=== PATIENT | male | born 1940 | race Caucasian/White ===

== ENCOUNTER → 2018-07-29 | Outpatient (CLI) | payer OTHER ==
[~2018-07-29] MED LIST: ACCUPRIL40 MG PO; ALEVE220 MG PO; AMLODIPINE BESY10 MG PO; ARICEPT 5 MG TAB5 MG PO; ASA81BEC PO; ASPIRIN EC81 M1 PO; ASPIRIN325 PO; B12INJ PO; CELEXA 20 MG TA20 M1 PO; COLACE100 MG PO; CRESTOR20 MG PO; FLEXERIL PO; GLUCOPHAGE1000 MG PO; GLUCOTROL5 MG PO; K-DUR 20 MEQ T20 MEQ PO; L-ARGININE1000 MG PO; LAMICTAL 25 MG25 M1 PO; LASIX 40 MG TAB40 MG PO; LOPRESSOR100 MG PO; MIRALAX17 GM PO; NAPROSYN500 MG PO; NEURONTIN 300300 M1 PO; NEXIUM40 MG PO; NITROGLYCERIN0.4 MG SL; PERCOCET 5-3251 EACH PO; PHENERGAN 25 MG25 M1 PO; PLAVIX 75 MG TA75 M1 PO; PREVACID15 MG PO; RANEXA1000 MG PO; RANITIDINE HCL300 M1 PO; TRAMADOL 50 MG50 MG PO; XANAX 0.5 MG0.5 M1 PO
--- NOTE | ~2018-07-29 | P ---
[facility] [place] [address] PROCEDURE REPORT Name: RIVERA RAPP Room #: REG [facility].#: [id number] Admission: 07/29/18 Attend Phys: Wilner Hill MD Discharge: Date of : 39 Report #: [id number] THIS REPORT FOR: //name// CC: Philip Hill BRIEF HISTORY: The patient is a 77-year-old male with multiple problems including upper abdominal pain. He had a cholecystectomy last fall. He also is noted to be anemic. In addition, he has developed chronic diarrhea. He also has intermittent solid food dysphagia. 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 PREOPERATIVE DIAGNOSES: Abdominal pain, diarrhea, dysphagia and history of focal intestinal metaplasia. POSTOPERATIVE DIAGNOSES: 1. Moderately severe diffuse gastritis. 2. Small 1-2 cm sliding type hiatus hernia. 3. Focal area of trauma, GE junction secondary to vomiting last evening with prep. 4. Solid food dysphagia. 5. Small duodenal diverticulum. MEDICATIONS: Deep sedation with propofol per Anesthesia. SPECIMENS: 1. Small bowel biopsy, rule out celiac disease. 2. Biopsies of gastritis. ESTIMATED BLOOD LOSS: 3 mL. PROCEDURE: EGD with biopsy and Askew dilation. FINDINGS: Prior to propofol sedation, procedure of upper endoscopy and dilation was reviewed with the patient and his . They indicate they understand and desire that we proceed. DESCRIPTION OF PROCEDURE: With the patient in left lateral decubitus position, the Olympus video endoscope was inserted in the cervical esophagus under direct vision without difficulty. Examination of this organ through its entire length revealed normal esophageal mucosa through the entire esophagus down to the squamocolumnar junction. No obvious esophagitis or Ugarte mucosa. Examination of squamocolumnar junction revealed a focal area of minor trauma, likely secondary to vomiting last evening. A significant tear was not seen. There was no bleeding or clot. A small 1-2cm intermittently seen sliding type hiatus hernia was noted. Mucosa and hernia unremarkable. Scope was advanced in the [facility] [address] [place] [address] PROCEDURE REPORT Name: RIVERA RAPP Room #: REG [facility].#: [id number] Admission: 07/29/18 Attend Phys: Wilner Hill MD Discharge: Date of : 39 Report #: [id number] stomach, once again was examined on end view as well as retroflexed views. There was a small amount of bile in his stomach, which is not surprising in view of his previous cholecystectomy. There was moderately diffuse gastritis with diffuse erythema in the stomach and antral striations but no ulcers or erosions. There was no evidence of bleeding lesions. Vascular ectasias were not seen. Biopsies were obtained in view of his history of intestinal metaplasia. No mass, lesions or nodularity was seen. The pylorus was normal. Duodenal bulb and postbulbar sweep down the third portion was unremarkable except for small duodenal diverticulum. At that point, scope was slowly withdrawn and careful circumferential views were obtained. Biopsies were obtained of the gastritis. Following procedure, he was dilated with passage of 50-Kittitian Askew dilator with no resistance. CONDITION OF THE PATIENT UPON DISCHARGE: Following procedure, the patient was drowsy and prepared for colonoscopy. INSTRUCTIONS TO THE PATIENT AND FAMILY AT THE TIME OF DISCHARGE: He has had abdominal pain. We will have him take omeprazole 40 mg daily. We will also follow up on biopsies and make further recommendations as needed. He is to return for dilation of esophagus on an as needed basis. We will proceed with colonoscopy at this time. By: 1406 [id number] Wilner Hill MD /nt
--- NOTE | ~2018-07-29 | P ---
[facility] [place] [address] PROCEDURE REPORT Name: RIVERA RAPP Room #: REG [facility].#: [id number] Admission: 07/29/18 Attend Phys: Wilner Hill MD Discharge: Date of : 39 Report #: [id number] THIS REPORT FOR: //name// CC: Philip Hill OUTPATIENT COLONOSCOPY BRIEF HISTORY: The patient is a 77-year-old male who recently has had problems with anemia. He also has developed chronic diarrhea. He has a history of colon polyps. PREOPERATIVE DIAGNOSES: Anemia, diarrhea and a history of colon polyps. POSTOPERATIVE DIAGNOSES: 1. Multiple colon polyps. 2. Mild sigmoid diverticulosis coli. 3. Small internal hemorrhoids. MEDICATIONS: Deep sedation with propofol per anesthesia. SPECIMENS: 1. Random biopsies of proximal colon to rule out microscopic colitis. 2. Polyp, mid ascending colon. 3. Polyp, mid transverse colon. 4. Random biopsies of distal colon and rectum. 5. Polyps x 2 at 50 cm. ESTIMATED BLOOD LOSS: 5 mL. PROCEDURE: Colonoscopy to cecum and terminal ileum with snare polypectomy and biopsy. FINDINGS: Prior to propofol sedation, procedure of colonoscopy was discussed with the patient's as well as potential risks and its complications. She indicates he understands and desires to proceed. DESCRIPTION OF PROCEDURE: With the patient in the left lateral decubitus position, digital examination was completed, which revealed no abnormalities. Subsequently, the Olympus video colonoscope was introduced in the rectum and advanced under direct vision to the cecum. Done with minimal difficulty. The cecum was identified by the ileocecal valve and the appendiceal orifice. I was able to visualize the distal segment of the terminal ileum, which was inspected and noted to be unremarkable. In particular, there was no evidence of bleeding lesions. Blood was not seen. There was no evidence of inflammatory disease. The scope was withdrawn back into the cecum. It was retroflexed and withdrawn [facility] [address] [place] [address] PROCEDURE REPORT Name: RIVERA RAPP Room #: REG [facility].#: [id number] Admission: 07/29/18 Attend Phys: Wilner Hill MD Discharge: Date of : 39 Report #: [id number] throughout the entire colon. Upon slow withdrawal of the scope, the prep was excellent. The mucosa was within normal limits, normal vascular pattern and normal light reflex. As we withdrew the scope, he was found to have a 3 x 4 mm flat polyp in the mid ascending colon, which was removed with biopsy forceps. The scope was further withdrawn and in the mid transverse colon, another polyp was seen. This was a flat polyp over a fold. It was a 10-12 mm in length and 4-6 mm in width. It was removed in a piecemeal fashion with a cold snare and also cold biopsy forceps. A complete polypectomy was achieved. The scope was further withdrawn and no other mucosal abnormalities were seen. We obtained random biopsies upon slow withdrawal of the scope. As we withdrew the scope into the distal colon, at 50 cm, 2 diminutive polyps were seen and removed by biopsy. In addition, he was noted to have mild sigmoid diverticular disease, without endoscopic evidence of diverticulitis. Scope was further withdrawn and again, he had normal-appearing mucosa. Also, I might point out vascular ectasias were not seen on today's exam. Scope was withdrawn in the rectum. Upon retroflexion, very small hemorrhoids were seen. Scope was further withdrawn and no additional abnormalities were seen. Scope was withdrawn. The patient tolerated the procedure well. CONDITION OF THE PATIENT UPON DISCHARGE: Following the procedure, the patient drowsy, arousable and conversant and will be discharged home when fully ambulatory. INSTRUCTIONS TO THE PATIENT AND FAMILY AT THE TIME OF DISCHARGE: I do not find evidence of inflammatory disease or obvious bleeding lesion or blood. Vascular ectasias were not seen. The mid transverse colon polyp was fairly large, probably more than a centimeter and it was flat. I did not see stigmata of bleeding, but it is possible this lesion could have been oozing blood, especially since he is on Plavix and aspirin. We will follow up on the path and make further recommendations. If three or more polyps are adenomas, typically we would repeat colonoscopy in 3 years; otherwise, suggest return in 5 years. However, I had based those recommendations on the patient's clinical status at that point in the future. He is quite frail at this point in time. As for the diarrhea, I do not see evidence of inflammatory disease. He was empirically placed on Colestid, which has helped to some degree. We will continue Colestid and await biopsy results. If he does have evidence of microscopic colitis, he potentially could benefit from the use of budesonide. By: 1455 01 Wilner Hill MD /nt
--- NOTE | 2018-07-31 16:06 | PATH ---
[facility] [place] [address] [address] PATHOLOGY RPT PROCEDURE Name: GINO RAPP Room #: REG GURU Jae.#: [id number] Admission: 07/29/18 Date of : 39 Discharge: Report #: [id number] Path Case #: [id number] [facility] Accession Number: [id number] . 01 Material submitted: . PART A: BX OF SMALL BOWEL RO R/O CELIAC REGARDING DIARRHEA AND ANEMIA PART B: BX OF GASTRITIS HX OF INTESTINAL METOPLASIA PART C: RANDOM BX PROXIMAL COLON RO R/O MICORSCOPIC COLITIS PART D: POLYP AT MID ASCENDING COLON PART E: POLYP AT MID TRANSVERSE COLON PART F: RANDOM BX DISTAL COLON AND RECTUM TO R/O MICROSCOPIC COLITIS PART G: POLYP AT 50CM X2 . 01 Clinical history: . Anemia; dysphagia; diarrhea A. R/O celiac regarding diarrhea and anemia B. Gastritis; hx of intestinal metoplasia C. R/O microscopic colitis F. R/O microscopic colitis . 02 Diagnosis: A. Small bowel mucosa, R/O celiac, endoscopic biopsy: - No diagnostic abnormalities. - Negative for villous blunting or increase in intraepithelial lymphocytes. . B. Gastric mucosa, gastritis, endoscopic biopsy: - Mild chronic active gastritis. - Negative for intestinal metaplasia or atrophy in these fragments, history of intestinal metaplasia noted. - Negative for Helicobacter pylori (properly controlled immunohistochemical stain performed). . C. Large intestinal mucosa, random biopsy proximal colon, endoscopic biopsy: - Mild focal active cryptitis, please see comment. - Negative for dysplasia or malignancy. . D. Polyp, mid ascending colon, endoscopic biopsy: - Tubular adenoma. - Negative for high-grade dysplasia. . E. Polyp, mid transverse colon, endoscopic biopsy: - Tubular adenoma. - Negative for high-grade dysplasia. . F. Large intestinal mucosa, distal colon and rectum, endoscopic biopsy: - Mild focal acute cryptitis along with reactive changes. [facility] [address] [place] [address] PATHOLOGY RPT PROCEDURE Name: GINO RAPP [facility]#: [id number] Admission: 07/29/18 Date of : 39 Discharge: Report #: [id number] Path Case #: [id number] - Negative for dysplasia or malignancy. . G. Polyp x2, at 5.0 cm, endoscopic biopsy: - Inflamed hyperplastic polyp with focal ulceration. - Negative for dysplasia. (IUV:aida; 07/31/2018) QMS/07/31/2018 . 02 Comment: Parts C and F: Sections of the colonic mucosa designated "random colon from proximal colon, distal colon and rectum" show focal cryptitis, and a moderately cellular lamina propria composed predominantly of lymphocytes and plasma cells and occasional eosinophils. Surface ulceration is not identified. There are no crypt abscesses, granulomas or viral inclusions. Given the description, the differential diagnosis includes mild focal active colitis of infectious etiology, medication-induced colitis, bowel preparation, a resolving episode of colitis, as well as diverticulitis. Please correlate with clinical as well as endoscopic findings. (IUV:aida; 07/31/2018) . 02 Electronically signed: . Ирина Hughes MD, Pathologist NPI- [id number] . 01 Gross description: . A. Received in formalin labeled "Green, Gino, BX of small bowel to R/O celiac," are multiple fragments of pale uribe soft tissue measuring 0.9 x 0.8 x 0.2 cm in aggregate dimensions and ranging from 0.1 to 0.4 cm in maximum dimension. The specimen is submitted entirely in cassette A1. . B. Received in formalin labeled "Green, Gino, BX of gastritis," are multiple fragments of pale uribe soft tissue measuring 0.8 x 0.7 x 0.2 cm in aggregate dimensions and ranging from 0.2 to 0.7 cm in maximum dimension. The specimen is submitted entirely in cassette B1. . C. Received in formalin labeled "Green, Gino, random BX proximal colon to R/O microscopic colitis," are five segments of uribe soft tissue measuring 0.8 x 0.7 x 0.2 cm in aggregate dimensions and ranging from 0.3 to 0.4 cm in maximum dimension. The specimen is submitted entirely in cassette C1. . D. Received in formalin labeled "Green, Gino, polyp at mid ascending colon," are three segments of uribe soft tissue measuring 0.5 x 0.4 x 0.2 cm in aggregate dimensions and ranging from 0.2 to 0.3 cm in maximum dimension. The specimen is submitted entirely in cassette D1. . E. Received in formalin labeled "Green, Gino, polyp at mid transverse colon," are multiple segments of polypoid, uribe-brown soft tissue [facility] [address] [place] [address] PATHOLOGY RPT PROCEDURE Name: GINO RAPP Room #: REG [facility]#: [id number] Admission: 07/29/18 Date of : 39 Discharge: Report #: [id number] Path Case #: [id number] measuring 2.2 x 0.5 x 0.3 cm in aggregate dimensions and ranging from 0.2 to 0.8 cm in maximum dimension. The specimen is submitted entirely in cassette E1. . F. Received in formalin labeled "Green, Gino, random BX distal colon and rectum to R/O micro colitis," are multiple segments of pale uribe soft tissue measuring 2.0 x 0.5 x 0.2 cm in aggregate dimensions and ranging from 0.2 to 0.4 cm in maximum dimension. The specimen is submitted entirely in cassette F1. . G. Received in formalin labeled "Green, Gino, polyp at 50 cm x2," are two segments of uribe soft tissue measuring 0.3 x 0.2 x 0.2 cm and 0.3 x 0.3 x 0.2 cm in greatest dimensions. The specimen is submitted entirely in cassette G1. ([facility]; 07/30/2018) XDC/XDC . 02 Pathologist provided ICD-10: K29.50, D12.2, K63.5, K62.89, K63.3 . 02 CPT . 327322, 949268, 007785, 448596, 138514, 932178, 101028, K50346 Specimen Comment: A courtesy copy of this report has been sent to Specimen Comment: [phone], . Specimen Comment: Report sent to / DR SMITH Performed at: [address] [facility], [place], [place] [id number] MD Bryan Montanez MD Phone: [phone] Performed at: [address] [facility] [id number] MD Ирина Hughes MD Phone: [phone]
== END | disposition home or self-care (01) ==
LOC: GI 07-28 10:47
DX: D12.2 Benign neoplasm of ascending colon (principal); D12.3 Benign neoplasm of transverse colon; K63.5 Polyp of colon; K57.30 Diverticulosis of large intestine without perforation or abscess without bleeding; K62.89 Other specified diseases of anus and rectum; K63.3 Ulcer of intestine; K29.50 Unspecified chronic gastritis without bleeding; K64.8 Other hemorrhoids; K44.9 Diaphragmatic hernia without obstruction or gangrene; K57.10 Diverticulosis of small intestine without perforation or abscess without bleeding; R13.19 Other dysphagia; I10 Essential (primary) hypertension; Z86.73 Personal history of transient ischemic attack (TIA), and cerebral infarction without residual deficits; Z86.010 Personal history of colon polyps; Z79.82 Long term (current) use of aspirin; Z79.899 Other long term (current) drug therapy
CPT/HCPCS: 62110; 62900

== ENCOUNTER → 2019-05-01 | Outpatient (CLI) | payer OTHER | LOC: HYPER 10:17 | DX: E11.621 Type 2 diabetes mellitus with foot ulcer (principal); L97.512 Non-pressure chronic ulcer of other part of right foot with fat layer exposed; E11.622 Type 2 diabetes mellitus with other skin ulcer; L97.811 Non-pressure chronic ulcer of other part of right lower leg limited to breakdown of skin; E11.42 Type 2 diabetes mellitus with diabetic polyneuropathy; I25.10 Atherosclerotic heart disease of native coronary artery without angina pectoris; E11.22 Type 2 diabetes mellitus with diabetic chronic kidney disease; I12.9 Hypertensive chronic kidney disease with stage 1 through stage 4 chronic kidney disease, or unspecified chronic kidney disease; N18.9 Chronic kidney disease, unspecified; E78.5 Hyperlipidemia, unspecified; E66.9 Obesity, unspecified; G47.33 Obstructive sleep apnea (adult) (pediatric); R56.9 Unspecified convulsions; R29.6 Repeated falls; J44.9 Chronic obstructive pulmonary disease, unspecified; F03.90 Unspecified dementia, unspecified severity, without behavioral disturbance, psychotic disturbance, mood disturbance, and anxiety; Z86.73 Personal history of transient ischemic attack (TIA), and cerebral infarction without residual deficits; Z95.1 Presence of aortocoronary bypass graft; Z91.81 History of falling; Z68.30 Body mass index [BMI] 30.0-30.9, adult ==

== ENCOUNTER → 2019-05-01 | Outpatient (CLI) | payer OTHER | LOC: HYPER 17:08 | DX: E11.621 Type 2 diabetes mellitus with foot ulcer (principal); I87.311 Chronic venous hypertension (idiopathic) with ulcer of right lower extremity; L97.511 Non-pressure chronic ulcer of other part of right foot limited to breakdown of skin; E11.622 Type 2 diabetes mellitus with other skin ulcer; L97.811 Non-pressure chronic ulcer of other part of right lower leg limited to breakdown of skin; E11.22 Type 2 diabetes mellitus with diabetic chronic kidney disease; I13.0 Hypertensive heart and chronic kidney disease with heart failure and stage 1 through stage 4 chronic kidney disease, or unspecified chronic kidney disease; N18.9 Chronic kidney disease, unspecified; I50.9 Heart failure, unspecified; E11.42 Type 2 diabetes mellitus with diabetic polyneuropathy; E11.51 Type 2 diabetes mellitus with diabetic peripheral angiopathy without gangrene; E78.5 Hyperlipidemia, unspecified; E66.09 Other obesity due to excess calories; G47.33 Obstructive sleep apnea (adult) (pediatric); G40.909 Epilepsy, unspecified, not intractable, without status epilepticus; J44.9 Chronic obstructive pulmonary disease, unspecified; I67.9 Cerebrovascular disease, unspecified; I25.10 Atherosclerotic heart disease of native coronary artery without angina pectoris; M47.896 Other spondylosis, lumbar region; R60.0 Localized edema; F03.90 Unspecified dementia, unspecified severity, without behavioral disturbance, psychotic disturbance, mood disturbance, and anxiety; Z68.30 Body mass index [BMI] 30.0-30.9, adult; Z90.49 Acquired absence of other specified parts of digestive tract; Z95.1 Presence of aortocoronary bypass graft; Z95.820 Peripheral vascular angioplasty status with implants and grafts; Z79.01 Long term (current) use of anticoagulants; Z79.84 Long term (current) use of oral hypoglycemic drugs; Z79.82 Long term (current) use of aspirin ==

== ENCOUNTER → 2019-07-13 | Outpatient (CLI) | payer OTHER | LOC: SJCVC 13:15 | DX: R94.31 Abnormal electrocardiogram [ECG] [EKG] (principal); I25.10 Atherosclerotic heart disease of native coronary artery without angina pectoris; E78.5 Hyperlipidemia, unspecified; I10 Essential (primary) hypertension; I65.23 Occlusion and stenosis of bilateral carotid arteries; E11.9 Type 2 diabetes mellitus without complications; G47.33 Obstructive sleep apnea (adult) (pediatric); G45.0 Vertebro-basilar artery syndrome; D35.2 Benign neoplasm of pituitary gland ==

== ENCOUNTER → 2020-01-11 | Outpatient (CLI) | payer OTHER ==
[~2020-01-11] MED LIST changes: +B12INJ INJECTION; -B12INJ PO; +CELEXA 10 MG TA10 M1 PO; +KEPPRA XR500 MG PO; +LOPRESSOR100 M1 PO; -LOPRESSOR100 MG PO; +MYRBETRIQ50 MG PO; +NAMENDA 10 MG T10 MG PO; +PROTONIX40 M1 PO; +TOPROL XL25 MG PO; +TROSPIUM CHLORI20 MG PO
== END ==
LOC: SJCVC 13:07
PROVIDERS: ATTEND Internal Medicine
DX: R94.31 Abnormal electrocardiogram [ECG] [EKG] (principal); I25.10 Atherosclerotic heart disease of native coronary artery without angina pectoris; E78.5 Hyperlipidemia, unspecified; I10 Essential (primary) hypertension; I65.23 Occlusion and stenosis of bilateral carotid arteries; E11.9 Type 2 diabetes mellitus without complications; G47.33 Obstructive sleep apnea (adult) (pediatric); G45.0 Vertebro-basilar artery syndrome; D50.0 Iron deficiency anemia secondary to blood loss (chronic); D53.2 Scorbutic anemia

== ENCOUNTER → 2020-01-21 | Outpatient (CLI) | payer OTHER ==
[~2020-01-21] VITALS: Ht 188 cm; Wt 108.9 kg
[~2020-01-21] MED LIST changes: -CELEXA 10 MG TA10 M1 PO; -NAMENDA 10 MG T10 MG PO; -TOPROL XL25 MG PO
[2020-01-21 14:39] VITALS: BP 147/80
[2020-01-21 15:45] VITALS: BP 153/78
--- NOTE | 2020-01-21 16:08 | NUR ---
IN FOR 1ST INJECTAFER INFUSION FOR IRON DEFICIENCY ANEMIA. PATIENT FEELING VERY WEAK. ADMISSION HISTORY AND ASSESSMENT COMPLETED. MEDICATION RECONCILED. INFUSED INJECTAFER OVER 30 MINUTES AND TOLERATED WELL. OBSERVED FOR 30 MINUTES. POST BP GOOD. REMOVED IV AND DISMISSED IN STABLE CONDITION.
== END ==
LOC: OPONC 09:21
PROVIDERS: ATTEND Internal Medicine
DX: D50.0 Iron deficiency anemia secondary to blood loss (chronic) (principal); I25.10 Atherosclerotic heart disease of native coronary artery without angina pectoris; E78.5 Hyperlipidemia, unspecified; E11.22 Type 2 diabetes mellitus with diabetic chronic kidney disease; I12.9 Hypertensive chronic kidney disease with stage 1 through stage 4 chronic kidney disease, or unspecified chronic kidney disease; G47.33 Obstructive sleep apnea (adult) (pediatric); G45.0 Vertebro-basilar artery syndrome; D35.2 Benign neoplasm of pituitary gland
CPT/HCPCS: 95000

== ENCOUNTER → 2020-01-28 | Outpatient (CLI) | payer OTHER ==
[~2020-01-28] MED LIST changes: +CELEXA 10 MG TA10 M1 PO; +NAMENDA 10 MG T10 MG PO; +TOPROL XL25 MG PO
[2020-01-28 14:00] VITALS: BP 119/65
[2020-01-28 15:39] VITALS: BP 116/62
--- NOTE | 2020-01-28 15:57 | NUR ---
IN FOR 2ND INJECTAFER INFUSION. STATED FEELING STRONGER SINCE INFUSION LAST WEEK. DENIED ANY SIDE EFFECTS. IV PLACED IN LEFT WRIST AND INFUSED INJECTAFER. TOLERATED INFUSION WELL. OBSERVED FOR 30 MINUTES. POST BP GOOD. REMOVED IV AND DISMISSED IN STABLE CONDITION.
== END ==
LOC: OPONC 01-26 14:52
PROVIDERS: ATTEND Internal Medicine
DX: D50.9 Iron deficiency anemia, unspecified (principal); N18.9 Chronic kidney disease, unspecified
CPT/HCPCS: 95000

== ENCOUNTER 2020-04-17 11:26 | Emergency (ER) | payer OTHER ==
[~2020-04-17] VITALS: Ht 188 cm; Wt 106.6 kg
--- NOTE | ~2020-04-17 | EMS ---
[facility] [address] [place] [address] EMS Patient Care Report Name: RIVERA RAPP Room #: REG MELO Lea#: [id number] Admission: 04/17/20 Attend Phys: Discharge: Date of : 39 Report #: [id number] THIS REPORT FOR: //name// Report Transmitted: 04/17/2020 12:19 EMS Care Summary [facility] MED-ACT Incident [id number] @ 04/17/2020 10:51 Incident Location [address] [place] [address] Patient RIVERA RAPP Male, 79 Years 1940 Patient Address [address] [place] [address] Patient History Diabetes,Hypertension (HTN),Cardiac Condition - Other, Patient Allergies No known allergies, Patient Medications Rosuvastatin, Furosemide, Gabapentin, Metformin, Metoprolol, Citalopram, Plavix, Chief Complaint "The right side of my back hurts." Disposition Transported No Lights/[place]patch Reason Falls Transported To [facility] Narrative "My back hurts." Dispatched to this location code 3 for a male PT with complaints of right sided back pain. Arrive to find the PT walking to the cot in the entry way of his [facility] [address] [place] [address] EMS Patient Care Report Name: RIVERA RAPP Room #: REG MELO Lea#: [id number] Admission: 04/17/20 Attend Phys: Discharge: Date of : 39 Report #: [id number] house. PT reports he slid out of his bed. He reports he his bed is about 18-24 inches off the ground. He reports he landed on his lower back. He reports he had a bowel movement while sitting on the ground. PT denies any loss of consciousness from the fall. He denies any neck or back pain. He denies hitting his head. PT reports he takes blood thinners. He rates his pain as a 3 out of 10. He reports he has experienced this pain in the past. He states he had a similar pain last night and thinks it has something to do with bowels. He denies any blood in his stool or dark tarry stools. He denies any constipation. He denies any chest pain or SOA. Initial Vitals @11:19P: 76,R: 18,BP: 123/73,GCS: 15,SpO2: 99,Revised Trauma: 12, @11:12P: 81,R: 18,BP: 137/72,Pain: 3/10,GCS: 15,SpO2: 100,Revised Trauma: 12, Assessments @11:06MENTAL:Person Oriented,Time Oriented,Place Oriented,Event Oriented,SKIN:HEENT:Head/Face: No Abnormalities,Neck/Airway: No Abnormalities,LUNG SOUNDS:General: No Abnormalities,ABDOMEN:General: No Abnormalities,PELVIS//GI:EXTREMITIES:PULSE:Radial: 2+ Normal,NEURO: Impression Injury of Lower Back Timeline 10:42,Call Received 10:42,Psap Call 10:51,Dispatched 10:51,En Route 11:03,On Scene 11:05,At Patient 11:11,Depart Scene 11:12,BP: 137/72 M,PULSE: 81,RR: 18 R,SPO2: 100 Ox,ETCO2: ,BG: ,PAIN: 3,GCS: 15, 11:19,BP: 123/73 M,PULSE: 76,RR: 18 R,SPO2: 99 Ox,ETCO2: ,BG: ,PAIN: ,GCS: 15, 11:22,At Destination 11:33,Call Closed Disclaimer v1.1 Copyright 2020 [employer] This EMS Care Summary contains data elements from the applicable legal record (which may be displayed differently). It is designed to provide pertinent information for the following purposes: continuity of care, clinical quality, and state data reporting. The complete legal record is available to ED staff and administrators of the receiving hospital in [employer]'s Patient Tracker. All data is provided "as is."
[2020-04-17 11:47] LABS: HEMATOCRIT 37.3 % (42.0-52.0); HEMOGLOBIN 12.6 gm/dL (14.0-18.0); MCH 29.5 pg (26.0-34.0); MCHC 33.7 g/dL (28.0-37.0); MCV 87.4 fL (80.0-100.0); PLATELET COUNT 175 thou/uL (150-400); RBC 4.27 mil/uL (4.50-6.00); RDW 21.1 % (10.5-14.5); WBC 5.4 thou/uL (4.0-11.0)
[2020-04-17 12:10] LABS: CALCIUM 8.7 mg/dL (8.5-10.1); POTASSIUM 4.3 mmol/L (3.5-5.1)
[2020-04-17 12:11] LABS: ABSOLUTE NEUTROPHILS 3.3 thou/uL (1.4-8.2); PLATELET ESTIMATE NORMAL
[2020-04-17 12:15] LABS: ALBUMIN 3.3 g/dL (3.4-5.0); TOTAL BILIRUBIN 0.2 mg/dL (0.2-1.0); TOTAL PROTEIN 6.3 g/dL (6.4-8.2)
[2020-04-17 13:52] LABS: URINE BILIRUBIN NEGATIVE (Negative); URINE BLOOD NEGATIVE (Negative); URINE CLARITY CLEAR; URINE COLOR YELLOW; URINE GLUCOSE-RANDOM* NEGATIVE (Negative); URINE KETONES NEGATIVE (Negative); URINE LEUKOCYTES-REFLEX NEGATIVE (Negative); URINE NITRITE-REFLEX NEGATIVE (Negative); URINE PROTEIN (DIPSTICK) NEGATIVE (Negative); URINE SPECIFIC GRAVITY 1.015 (1.005-1.035); URINE UROBILINOGEN 0.2 E.U./dl (0.2-1.0)
[2020-04-17] MEDS ORDERED: NORCO 7.5-3251 EACH PO (14:17)
[2020-04-17 14:20] VITALS: BP 155/72
== END 2020-04-17 14:20 | disposition home or self-care (01) ==
LOC: ER 11:26
PROVIDERS: Physician Assistant
DX: M54.5 Low back pain (principal); M25.551 Pain in right hip; M19.90 Unspecified osteoarthritis, unspecified site; I10 Essential (primary) hypertension; E11.9 Type 2 diabetes mellitus without complications; Z90.49 Acquired absence of other specified parts of digestive tract; Z90.89 Acquired absence of other organs; Z79.01 Long term (current) use of anticoagulants; Z79.82 Long term (current) use of aspirin; Z79.84 Long term (current) use of oral hypoglycemic drugs; Z79.899 Other long term (current) drug therapy; W06.XXXA Fall from bed, initial encounter; Y93.89 Activity, other specified; Y92.89 Other specified places as the place of occurrence of the external cause; Y99.8 Other external cause status

== ENCOUNTER → 2020-06-09 | Outpatient (CLI) | payer OTHER ==
[~2020-06-09] MED LIST changes: +NORCO 7.5-3251 EACH PO
== END ==
LOC: SJCVC 10:23
PROVIDERS: ATTEND Internal Medicine
DX: R94.31 Abnormal electrocardiogram [ECG] [EKG] (principal); I48.91 Unspecified atrial fibrillation; I25.10 Atherosclerotic heart disease of native coronary artery without angina pectoris; E78.5 Hyperlipidemia, unspecified; I65.23 Occlusion and stenosis of bilateral carotid arteries; G47.33 Obstructive sleep apnea (adult) (pediatric); G45.0 Vertebro-basilar artery syndrome; D35.2 Benign neoplasm of pituitary gland; D50.0 Iron deficiency anemia secondary to blood loss (chronic); E11.22 Type 2 diabetes mellitus with diabetic chronic kidney disease; I12.0 Hypertensive chronic kidney disease with stage 5 chronic kidney disease or end stage renal disease; N18.9 Chronic kidney disease, unspecified; E11.51 Type 2 diabetes mellitus with diabetic peripheral angiopathy without gangrene; E11.40 Type 2 diabetes mellitus with diabetic neuropathy, unspecified; Z86.73 Personal history of transient ischemic attack (TIA), and cerebral infarction without residual deficits; Z79.899 Other long term (current) drug therapy; Z79.84 Long term (current) use of oral hypoglycemic drugs

== ENCOUNTER → 2020-10-07 | Outpatient (CLI) | payer OTHER | LOC: SJCVC 11:05 | PROVIDERS: ATTEND Internal Medicine | DX: R94.31 Abnormal electrocardiogram [ECG] [EKG] (principal); I48.91 Unspecified atrial fibrillation; I25.10 Atherosclerotic heart disease of native coronary artery without angina pectoris; E78.5 Hyperlipidemia, unspecified; I95.1 Orthostatic hypotension; G45.0 Vertebro-basilar artery syndrome; G47.33 Obstructive sleep apnea (adult) (pediatric); J44.9 Chronic obstructive pulmonary disease, unspecified; E11.22 Type 2 diabetes mellitus with diabetic chronic kidney disease; I13.0 Hypertensive heart and chronic kidney disease with heart failure and stage 1 through stage 4 chronic kidney disease, or unspecified chronic kidney disease; I50.9 Heart failure, unspecified; N18.9 Chronic kidney disease, unspecified; E66.9 Obesity, unspecified; Z95.5 Presence of coronary angioplasty implant and graft; Z95.1 Presence of aortocoronary bypass graft; Z90.49 Acquired absence of other specified parts of digestive tract; Z86.73 Personal history of transient ischemic attack (TIA), and cerebral infarction without residual deficits; Z82.49 Family history of ischemic heart disease and other diseases of the circulatory system ==

== ENCOUNTER → 2020-10-11 | Outpatient (CLI) | payer OTHER | LOC: SJCVCIMAG 10:55 | PROVIDERS: ATTEND Internal Medicine | DX: I08.3 Combined rheumatic disorders of mitral, aortic and tricuspid valves (principal); J44.9 Chronic obstructive pulmonary disease, unspecified; E11.9 Type 2 diabetes mellitus without complications; I48.91 Unspecified atrial fibrillation; I25.10 Atherosclerotic heart disease of native coronary artery without angina pectoris; I10 Essential (primary) hypertension ==

== ENCOUNTER 2021-01-08 09:15 | Inpatient (IN) | payer OTHER ==
[~2021-01-08] VITALS: Ht 190.5 cm; Wt 87.9 kg
--- NOTE | ~2021-01-08 | EMS ---
[facility] [address] [place] [address] EMS Patient Care Report Name: RIVERA RAPP Room #: 454-P ADM IN M.R.#: [id number] Admission: 01/08/21 Attend Phys: Michael Zavala MD Discharge: Date of : 39 Report #: [id number] THIS REPORT FOR: //name// Report Transmitted: 01/10/2021 09:45 EMS Care Summary [facility] MED-ACT Incident [id number] @ 01/08/2021 08:41 Incident Location [address] [place] [address] Patient RIVERA RAPP Male, 80 Years 1940 Patient Address [address] [place] [address] Patient History Behavioral/Psychiatric Disorder,Congestive Heart Failure (CHF),Hypertension (HTN), Patient Allergies Other drug allergy, Patient Medications Miralax, Pantoprazole, Citalopram, Tylenol, Rosuvastatin, Furosemide, ASA, Metoprolol, Clopidogrel, Donepezil, Potassium, Gabapentin, Tramadol, Ondansetron, Levetiracetam, Chief Complaint combative Disposition Transported No Lights/[place] Dispatch Reason Psychiatric Problem/Abnormal Behavior/Suicide Attempt Transported To [facility] [address] [place] [address] EMS Patient Care Report Name: RIVERA RAPP Room #: 454-P ADM IN Jae.#: [id number] Admission: 01/08/21 Attend Phys: Michael Zavala MD Discharge: Date of : 39 Report #: [id number] Staff said the pt was grabbing them and twisting their arms and wrists this AM. They said he was upset about something and became combative this AM. The staff said the pt isn't normally upset and fighting with them. The pt said the staff had been biting his arms and grabbing him and he didn't like it. The staff said the pt has dementia and is normally confused, but cooperative. The pt denied any pain, nausea, shortness of breath or headache. Staff denied that the pt has been ill recently or had a fever. The pt's initially wanted the pt taken to [facility] for evaluation. After advising her that they were 'high volume' she suggested transport to [place], since he had been there before. The pt was sitting in a wheelchair in the dining area. [facility] was with the pt. HPI, PMH, Exam, vitals from staff. The pt was lifted to the cot - unit. En route: Vitals. bG check. Biocom to [facility]. No orders req'd/rec'd. The pt remained calm and cooperative during his time with EMS. He was moved to ER#7. Care released to staff. Initial Vitals @PTAP: 82,R: 18,BP: 140/83,Pain: 0/10,GCS: 14,SpO2: 97,Revised Trauma: 12, @09:06P: 96,R: 18,BP: 157/75,Pain: 0/10,GCS: 14,Temp: 98.2F,Glucose: 124,SpO2: 96,Revised Trauma: 12, Assessments @09:07MENTAL:Confused,Person Oriented,Time Oriented,SKIN:HEENT:Head/Face: No Abnormalities,Neck/Airway: No Abnormalities,LUNG SOUNDS:General: No Abnormalities,ABDOMEN:General: No Abnormalities,PELVIS//GI:No Abnormalities,EXTREMITIES:Left Arm: Other,Right Arm: Other,Left Leg: No Abnormalities,Right Leg: No Abnormalities,PULSE:NEURO:No Abnormalities, Impression Behavioral/psychiatric episode Procedures @09:05Surgical Mask on PatientResponse: Unchanged Timeline SPECIAL EDUCATION CASE MANAGER,BP: 140/83 M,PULSE: 82,RR: 18 R,SPO2: 97 Ox,ETCO2: ,BG: ,PAIN: 0,GCS: 14, 08:40,Call Received 08:40,Psap Call 08:41,Dispatched 08:42,En Route 08:48,On Scene 08:50,At Patient 09:00,Depart Scene 09:05,Surgical Mask on Patient,Response: Unchanged 09:06,BP: 157/75 M,PULSE: 96,RR: 18 R,SPO2: 96 Ox,ETCO2: ,B,PAIN: 0,GCS: [address] [place] [address] EMS Patient Care Report Name: RIVERA RAPP Room #: 454-P ADM IN M.R.#: [id number] Admission: 01/08/21 Attend Phys: Michael Zavala MD Discharge: Date of : 38 Report #: [id number] 14, 09:11,At Destination 09:19,Call Closed Disclaimer v1.1 Copyright 2020 [employer] This EMS Care Summary contains data elements from the applicable legal record (which may be displayed differently). It is designed to provide pertinent information for the following purposes: continuity of care, clinical quality, and state data reporting. The complete legal record is available to ED staff and administrators of the receiving hospital in [employer]'s Patient Tracker. All data is provided "as is."
--- NOTE | ~2021-01-08 | EMS ---
[facility] [address] [place] [address] EMS Patient Care Report Name: RIVERA RAPP Room #: PRE MELO Lea#: [id number] Admission: Attend Phys: Discharge: Date of : 38 Report #: [id number] THIS REPORT FOR: //name// Report Transmitted: 01/08/2021 08:52 EMS Care Summary [facility] MED-ACT Incident [id number] @ 01/08/2021 08:41 Incident Location [address] [place] [address] Patient RIVERA RAPP Male, 80 Years 1940 Patient Address [address] [place], [place] [id number] Patient History Behavioral/Psychiatric Disorder,Congestive Heart Failure (CHF),Hypertension (HTN), Patient Allergies Other drug allergy, Patient Medications Miralax, Pantoprazole, Citalopram, Tylenol, Rosuvastatin, Furosemide, ASA, Metoprolol, Clopidogrel, Donepezil, Potassium, Gabapentin, Tramadol, Ondansetron, Levetiracetam, Chief Complaint combative Disposition Transported No Lights/[place] Dispatch Reason Psychiatric Problem/Abnormal Behavior/Suicide Attempt Transported To [facility] [address] [place] [address] EMS Patient Care Report Name: RIVERA RAPP Room #: PRE ER Jae.#: [id number] Admission: Attend Phys: Discharge: Date of : 38 Report #: [id number] Staff said the pt was grabbing them and twisting their arms and wrists this AM. They said he was upset about something and became combative this AM. The staff said the pt isn't normally upset and fighting with them. The pt said the staff had been biting his arms and grabbing him and he didn't like it. The staff said the pt has dementia and is normally confused, but cooperative. The pt denied any pain, nausea, shortness of breath or headache. Staff denied that the pt has been ill recently or had a fever. The pt's initially wanted the pt taken to [facility] for evaluation. After advising her that they were 'high volume' she suggested transport to [place], since he had been there before. The pt was sitting in a wheelchair in the dining area. [facility]PP[facility] was with the pt. HPI, PMH, Exam, vitals from staff. The pt was lifted to the cot - unit. En route: Vitals. bG check. Biocom to [place] ER. No orders req'd/rec'd. The pt remained calm and cooperative during his time with EMS. He was moved to ER#7. Care released to staff. Initial Vitals @PTAP: 82,R: 18,BP: 140/83,Pain: 0/10,GCS: 14,SpO2: 97,Revised Trauma: 12, @09:06P: 96,R: 18,BP: 157/75,Pain: 0/10,GCS: 14,Temp: 98.2F,Glucose: 124,SpO2: 96,Revised Trauma: 12, Assessments @09:07MENTAL:Confused,Person Oriented,Time Oriented,SKIN:HEENT:Head/Face: No Abnormalities,Neck/Airway: No Abnormalities,LUNG SOUNDS:General: No Abnormalities,ABDOMEN:General: No Abnormalities,PELVIS//GI:No Abnormalities,EXTREMITIES:Left Arm: Other,Right Arm: Other,Left Leg: No Abnormalities,Right Leg: No Abnormalities,PULSE:NEURO:No Abnormalities, Impression Behavioral/psychiatric episode Procedures @09:05Surgical Mask on PatientResponse: Unchanged Timeline STRAP SEWER,BP: 140/83 M,PULSE: 82,RR: 18 R,SPO2: 97 Ox,ETCO2: ,BG: ,PAIN: 0,GCS: 14, 08:40,Call Received 08:40,Psap Call 08:41,Dispatched 08:42,En Route 08:48,On Scene 08:50,At Patient 09:00,Depart Scene 09:05,Surgical Mask on Patient,Response: Unchanged 09:06,BP: 157/75 M,PULSE: 96,RR: 18 R,SPO2: 96 Ox,ETCO2: ,B,PAIN: 0,GCS: [facility] [address] [place] [address] EMS Patient Care Report Name: RIVERA RAPP Room #: PRE M.R.#: [id number] Admission: Attend Phys: Discharge: Date of : 39 Report #: [id number] :11,At Destination 09:19,Call Closed Disclaimer v1.1 Copyright 2020 [employer] This EMS Care Summary contains data elements from the applicable legal record (which may be displayed differently). It is designed to provide pertinent information for the following purposes: continuity of care, clinical quality, and state data reporting. The complete legal record is available to ED staff and administrators of the receiving hospital in [employer] Patient Tracker. All data is provided "as is."
[2021-01-08 09:16] VITALS: BP 149/71
[2021-01-08 09:43] LABS: ABSOLUTE NEUTROPHILS 8.7 thou/uL (1.4-8.2); BASOPHILS 0.4 % (0.0-2.0); EOSINOPHILS 0.5 % (0.0-3.0); HEMATOCRIT 36.1 % (42.0-52.0); LYMPHOCYTES 9.7 % (24.0-44.0); MCH 29.6 pg (26.0-34.0); MCHC 33.3 g/dL (28.0-37.0); MCV 88.8 fL (80.0-100.0); MONOCYTES 7.6 % (1.0-8.0); PLATELET COUNT 218 thou/uL (150-400); POLYS 81.8 % (36.0-66.0); RBC 4.06 mil/uL (4.50-6.00); RDW 15.9 % (10.5-14.5); WBC 10.6 thou/uL (4.0-11.0)
[2021-01-08 09:50] LABS: ANION GAP 9 mmol/L (7-16); BUN 18 mg/dL (7-18); CALCIUM 8.8 mg/dL (8.5-10.1); CHLORIDE 103 mmol/L (98-107); CO2 29 mmol/L (21-32); CREATININE 1.1 mg/dL (0.7-1.3); GLUCOSE 110 mg/dL (74-106); SODIUM 141 mmol/L (136-145)
--- NOTE | 2021-01-08 09:53 | NUR ---
DR NOBLE STATED A URINE SAMPLE DOES NOT NEED TO BE OBTAINED FROM THE PT.
[2021-01-08 09:59] LABS: TROPONIN-I <0.06 ng/mL (<0.06)
--- NOTE | 2021-01-08 10:40 | EKG ---
[place] [address] [facility] [address] [place] [address] ELECTROCARDIOGRAM REPORT Name: RIVERA RAPP Room #: REG MELO Lea#: [id number] Admission: 01/08/21 Attend Phys: Discharge: Date of : 38 Report #: [id number] [facility] ED Test Date: 2021-01-08 Test Time: 09:33:56 Pat Name: RIVERA RAPP Department: Room: Gender: M Child Therapist: : 1940 Requested By: Stefan Estrada Order Number: [id number] MD: Jr Peck Measurements Intervals [place] Rate: 93 P: 46 [place]: 153 QRS: 46 QRSD: 126 T: 25 QT: 407 QTc: 507 Interpretive Statements Sinus rhythm Nonspecific ST segment abnormality Compared to ECG 08/03/2014 18:23:19 Nonspecific change in the ST and T wave segments Electronically Signed On 01-08-2021 10:40:04 CDT by Jr Peck [email or web address] <ELECTRONICALLY SIGNED> By: Jr Peck MD, [facility] 01/08/21 1040 0933 0933 Jr Peck MD, FACC /EPI
[2021-01-08 12:46] LABS: URINE BILIRUBIN NEGATIVE (Negative); URINE BLOOD NEGATIVE (Negative); URINE CLARITY CLEAR; URINE COLOR YELLOW; URINE GLUCOSE-RANDOM* NEGATIVE (Negative); URINE KETONES TRACE (Negative); URINE LEUKOCYTES-REFLEX NEGATIVE (Negative); URINE NITRITE-REFLEX NEGATIVE (Negative); URINE PROTEIN (DIPSTICK) NEGATIVE (Negative); URINE UROBILINOGEN 0.2 E.U./dl (0.2-1.0)
[2021-01-08 21:28] VITALS: BP 174/93
[2021-01-08 22:02] VITALS: BP 152/85
[2021-01-08 23:26] VITALS: BP 149/88
--- NOTE | 2021-01-09 02:19 | NUR ---
PT ADMITTED FROM THE ER WITH C/O INCREASE AMS,COMBATIVE AT PRISON WITH GRABING OF STAFF AND TWISTING IT.PT IS A/O TO SELF AND WAS SLEEPY ON ARRIVAL.PT UNABLE TO ANSWER QUESTION AND TRY FIGHTING STAFF BACK DURING CARE.ADMISSION DONE AND PICTURE OF WOUND TAKEN.PT IS ON TELE.IV ACCESS ON LT AC WITH NS AT 126CC/HR.PT HAS SOME REDNESS ON COCCYX AREA.FALL PRECAUTION IN PLACE.PT IS INCONTINENT.WILL CONTINUE TO MONITOR
[2021-01-09 05:39] LABS: HEMATOCRIT 34.6 % (42.0-52.0); HEMOGLOBIN 11.5 gm/dL (14.0-18.0); MCH 29.5 pg (26.0-34.0); MCHC 33.1 g/dL (28.0-37.0); MCV 89.2 fL (80.0-100.0); RBC 3.88 mil/uL (4.50-6.00); RDW 15.7 % (10.5-14.5); WBC 7.7 thou/uL (4.0-11.0)
[2021-01-09 05:47] LABS: CALCIUM 8.2 mg/dL (8.5-10.1); CREATININE 1.1 mg/dL (0.7-1.3); POTASSIUM 3.8 mmol/L (3.5-5.1)
[2021-01-09 07:31] VITALS: BP 148/76
--- NOTE | 2021-01-09 15:01 | NUR ---
ASSUMED CARE OF PT AT 0700 THIS MORNING. PT IS A/OX1 WITH CONFUSION AND FORGETFULL. PT WAS ADMITTED FOR AGGRESIVE BEHAVIOR TOWARD STAFF. PT IS VERY CONFUSED AND WOULD GET AGGRESSIVE TOWARDS COTTON BALL MACHINE TENDER AND NURSES. OH IS IN PLACE. LT SHOULDER PN, BRUISING ON BILAT ARMS. ACHS, SKIN IS INTACT WITH REDNESS AND BARRIER CRM ON BUTTOCKS. ASSESSMENTS CHARTED AND OTHERWISE UNREMARKABLE. IV WAS PULLED OUT BY PT AT 1445 THIS AFTERNOON. WILL ATTEMPT TO PLACE ONE WHEN POSSIBLE. CALL LIGHT AND OTHER NEEDS PLACED WITHIN REACH. ST WAS IN AND EVALUATED SWALLOW STUDY. SILAS STATED SHE WOULD LIKE PT TO BE PLACED ON NPO UNTIL TOMORROW MORNING AND BE RE-EVALUATED. FAMILY IS ALL IN AGREEMENT. MEDS AND TX GIVEN NEEDED AND SCHEDULED. TELE SHOWING SR WITH OCCASIONAL TACH. WILL CONITUE TO MONITOR AND NOTE ANY CHANGES.
[2021-01-09 15:42] VITALS: BP 171/85
--- NOTE | 2021-01-09 15:50 | NUR ---
PT ADMITTED RELATED TO BEHAVIORAL ISSUES AT THE [facility]. CM MET WITH PT, DTR ANAHI ([phone] AND SPOUSE NICKI AT BEDSIDE THIS DAY. PT WAS ALERT TO SELF. PT'S FAMILY ANSWERED ASSESSEMNT QUESTIONS. THEY INDICATED THAT PT HAD BEEN PAYING PRIVATELY FOR SKILLED OVER AT [facility] AND THAT PRIOR TO THAT PT HAD BEEN SKILLED AT [facility], AND PRIOR TO THAT HAD A PROLONGED HOSPITALIZATION AT [facility]. THEY INDICATED THAT PT CAN'T STAND OR WALK AND THAT HE HAD USED A WC TO ASSIST WITH MOBILITY. SPOUSE INDICATED THAT PT HAD BEEN LIVING AT HOME AND USING A FWW TO ASSIST WITH MOBILITY PRIOR TO HIS HOSPITAL STAY AT [facility]. SPOUSE INDICATED PT HADN'T BEEN ABLE TO WALK AFTER HE WAS GIVEN CYMBALTA... THEY INDICATED THEY DON'T WANT PT GOING BACK TO [facility]. CM FOLLOWING REGARDING DC PLANNING.
[2021-01-09 20:15] VITALS: BP 160/86
--- NOTE | 2021-01-10 05:38 | NUR ---
PT IS ORIENTED TO SELF ONLY. HE IS OTHERWISE VERY CONFUSED. HE CAN BE COMBATIVE AND AGITATED WITH NURSING STAFF WHEN CARE IS PROVIDED. PT WAS MORE COOPERATIVE EARLIER IN THE SHIFT WHEN HIS DTR WAS PRESENT AT BEDSIDE. PT WAS AWAKE AND RESTLESS IN BED MOST OF THE NIGHT. HE FINALLY WENT TO SLEEP AROUND 0300. RESPIRATIONS EVEN AND UNLABORED. PT WAS INCONTINENT OF URINE MANY TIMES DURING THE NIGHT. NOT PROGRESSING WELL TOWARD POC GOALS. WILL MONITOR FURTHER.
[2021-01-10 07:53] VITALS: BP 181/96
[2021-01-10 10:19] VITALS: BP 163/93
[2021-01-10 11:39] LABS: HEMATOCRIT 33.5 % (42.0-52.0); HEMOGLOBIN 11.5 gm/dL (14.0-18.0); MCHC 34.3 g/dL (28.0-37.0); MCV 87.4 fL (80.0-100.0); RBC 3.84 mil/uL (4.50-6.00); RDW 15.8 % (10.5-14.5); WBC 7.3 thou/uL (4.0-11.0)
[2021-01-10 11:46] LABS: CALCIUM 8.6 mg/dL (8.5-10.1); MAGNESIUM 1.8 mg/dL (1.8-2.4); POTASSIUM 3.4 mmol/L (3.5-5.1)
--- NOTE | 2021-01-10 16:43 | NUR ---
CM MET WITH PT AND DTR ANAHI AT BEDSIDE THIS DAY AND SPOKE WITH PT'S SPOUSE AND OTHER DTR OVER THE PHONE. CM PROVIDED THEM INFO FOR SKILLED POST ACUTE CARE STAY AND ADDITIONAL INFO FOR SERVIECES UPON DC. ID WAS CONSULTED. CM FOLLOWING REGARDING DC PLANNING.
[2021-01-10 17:25] VITALS: BP 190/87
[2021-01-10 17:27] VITALS: BP 178/88
--- NOTE | 2021-01-10 17:54 | NUR ---
ASSUMED PT CARE THIS AM. PT IS ALERT TO SELF AND CONFUSED. PT HAS IV SITE ON R WRIST RUNNING NS @126ML AND ANTIBIOTICS. PT IS ON TELE MONITOR ON. PT DIET IS PUREED. EDUCATED PT DAUGHTER HOW TO FEED PT. PT IS ON ROOM AIR. PT HAD CT SCAN TODAY, PT IS INCONTINENT OF BLADDER AND BOWEL TODAY. PT IS ACCUCHECK ACHS. PT FAMILY AT THE BEDSIDE, PT ON THE BED EATING, BED ON THE LOWEST POSITION, SIDE RAILS UP X3 AND CALL LIGHT WITHIN REACH. WILL CONTINUE TO MONITOR PT. FOLLOW POC.
[2021-01-10 20:00] VITALS: BP 168/74
--- NOTE | 2021-01-11 04:44 | NUR ---
PT REMAIN ALERT AND ORIENT TIMES ONE, SELF ONLY. DAUGHTER WAS AT THE BEDSIDE AT THE CHANGE OF SHIFT. VSS, AFEBRILE. CONFUSED TO PLACE, THING, AND SITUATION. SR PER MONITOR. VSS, AFBRILE. LEFT SHOULDER PAIN WITH MOVEMENT. SLOW PROGRESS TOWARDS DC GOALS. WILL CONTINUE TO MONITOR.
[2021-01-11 05:36] LABS: HEMOGLOBIN 11.2 gm/dL (14.0-18.0); MCHC 33.9 g/dL (28.0-37.0); MCV 88.5 fL (80.0-100.0); RBC 3.73 mil/uL (4.50-6.00); RDW 15.5 % (10.5-14.5); WBC 5.8 thou/uL (4.0-11.0)
[2021-01-11 05:53] LABS: CALCIUM 8.2 mg/dL (8.5-10.1); MAGNESIUM 1.9 mg/dL (1.8-2.4); POTASSIUM 3.2 mmol/L (3.5-5.1)
--- NOTE | 2021-01-11 12:05 | NUR ---
Pt remains confused. Daughter a bedside. Pt unable to get OOB or ambulate. Max assist. Multiple bouts of loose incontinent stools. Lungs clear remains on ra. Incontinent of bowel and bladder. Needs to be qued to use call light. High fall risk bed in low position. Been unable to ambulate for 3 months. Skin remains intact air boots applied to prevent skin breakdown on heels. Turned q 2 ours to prevent future breakdown. Buttocks red applied barriar cream no openings found. Will continue to monitor throughout shift.
--- NOTE | 2021-01-11 15:12 | NUR ---
OT WORKED WITH PT THIS DAY AND INDICATED THAT PT MAY BENEFIT FROM SHORT TERM POST ACUTE CARE STAY. CM MET WITH PT AND DTR RG AT BEDSIDE THIS AFTERNOON. SHE INDICATED THAT SISTER ANAHI WAS VISITING [facility] THIS DAY AND THAT THEY WERE ALSO INTERESTED IN [place]. CM CALLED BOTH TO SEE IF THEY TAKE AETNA. CM LEFT VM'S FOR TING AND ILYA. AWAITING RESPONSE. PT STILL ON THREE IV ABX AWAITING CULTURES.
--- NOTE | 2021-01-11 16:22 | NUR ---
MELVI faxed SNF referrals to [facility] and [facility]. MELVI left voice message for the admissions dept at [facility]. MELVI spoke with Jeannine, clinical trial coordinator at [facility], who states the family is scheduled to tour their facility tomorrow. Informed both facilities that discharge is anticipated for Saturday, 01/03. Will need insurance auth. MELVI is following to assist as needed with discharge planning.
[2021-01-11 16:42] VITALS: BP 147/80
[2021-01-11 19:37] VITALS: BP 166/82
[2021-01-12 02:37] LABS: HEMATOCRIT 31.7 % (42.0-52.0); HEMOGLOBIN 10.8 gm/dL (14.0-18.0); MCH 30.2 pg (26.0-34.0); MCHC 34.2 g/dL (28.0-37.0); MCV 88.2 fL (80.0-100.0); RBC 3.59 mil/uL (4.50-6.00); RDW 15.8 % (10.5-14.5); WBC 8.2 thou/uL (4.0-11.0)
[2021-01-12 02:55] LABS: CALCIUM 8.1 mg/dL (8.5-10.1); CREATININE 0.9 mg/dL (0.7-1.3); MAGNESIUM 1.8 mg/dL (1.8-2.4)
--- NOTE | 2021-01-12 03:35 | NUR ---
ASSUMED CARE OF PT AT 1900. PT IS A/O X1 AND IS IMPULSIVE AND CONFUSED.COOPERATIVE WITH CARES AND IS PLEASANT BUT IS CONSISTENTLY REMOVING CLOTHING ITEMS, PRAFO BOOTS, SCD'S AND TELEMETRY. INSULIN GIVEN AT NOC. DENIES C/O PAIN OR DISCOMFORT BUT DOES HAVE POSITIONAL PAIN TO LEFT SHOULDER WITH TURNS. INCONTINENT OF BOWEL AND BLADDER. MEDICATIONS GIVEN PER MAR. FALL PRECAUTIONS IN PLACE, CALL LIGHT IS WITHIN REACH. WILL CONTINUE TO MONITOR.
[2021-01-12 03:41] LABS: POTASSIUM 2.7 mmol/L (3.5-5.1)
[2021-01-12 07:47] VITALS: BP 175/102
--- NOTE | 2021-01-12 16:32 | NUR ---
Naa has spoken to family, preference is [facility], awaiting auth. Anticipated dc is tomorrow. SW is following for needs with discharger planning.
--- NOTE | 2021-01-12 16:41 | NUR ---
FAXED REFERRAL AND NEGATIVE COVID RESULT (01/08/21) TO [facility] AND [facility]. FAMILY'S PREFERENCE IS [facility]. SPOKE TO JOHNNY/ADMISSIONS AT [place]. PATIENT HAD BEEN AT [facility] PREVIOUSLY. THEY WILL SUBMIT FOR AUTHORIZATION BUT SAID THEY HAVE HAD DIFFICULTY GETTING APPROVAL IN THE PAST WITH PATIENT'S AET[employer] INSURANCE. WILL CONFIRM WITH [facility]/ ADMISSIONS W/[facility] THAT THEY RECEIVED. FAMILY NOT ABLE TO TOUR TODAY. [facility] P [phone]; FAX [phone] [facility] P [phone]; FAX [phone]; M [phone]
[2021-01-12 16:58] VITALS: BP 187/97
[2021-01-13 01:15] VITALS: BP 177/99
[2021-01-13 02:36] LABS: HEMATOCRIT 36.2 % (42.0-52.0); HEMOGLOBIN 12.1 gm/dL (14.0-18.0); MCH 29.5 pg (26.0-34.0); MCHC 33.4 g/dL (28.0-37.0); MCV 88.2 fL (80.0-100.0); RBC 4.11 mil/uL (4.50-6.00); RDW 15.7 % (10.5-14.5); WBC 9.7 thou/uL (4.0-11.0)
[2021-01-13 02:46] LABS: CALCIUM 8.6 mg/dL (8.5-10.1); CREATININE 1.1 mg/dL (0.7-1.3); MAGNESIUM 1.8 mg/dL (1.8-2.4); POTASSIUM 3.6 mmol/L (3.5-5.1)
--- NOTE | 2021-01-13 02:49 | NUR ---
PT CARE ASSUMED AT 1900 WITH PT INBED WITH FAMILY MEMBER AT BEDSIDE.PT IS A/O TO SELF.PT IS ON BEDREST.PT IS ON PUREED DIET AND HONEY THICKEN LIQUID.PT IS ACHS.PT IS ON ROOM AIR.PT IS INCONTINENET TO B/B.NEW IV ACCESS ON RT WRIST .FALL PRECAUTIONS IN PLACE.WILL CONTINUE TO MONITOR
[2021-01-13 07:35] VITALS: BP 181/106
--- NOTE | 2021-01-13 11:04 | NUR ---
ASSUMED CARE OF PATIENT AT SHIFT CHANGE. ASSESSMENT CHARTED. HIGH BP NOTED; PROVIDERS NOTIFIED. CHANGE IN MENTAL STATUS ALSO NOTED; NEUROLOGY ALSO NOTFIED. LIDOCAINE PATCH ORDERED FOR SHOULDER PAIN. LABS REVIEWED W FAMILY. PATIENT INCONTINENT AND OFFERED REPOSITIONING. WORKED WITH PT/OT THIS DAY. POSSIBLE CT/CTA THIS DAY. KEPPRA TO BE RESTARTED. FALL PRECAUTIONS IN PLACE. CONTINUING FREQUENT MONITORING & FOLLOWING POC
--- NOTE | 2021-01-13 11:31 | NUR ---
Called Beckie from [facility] they are not able to accept the pt back due to behaviours exhibited (aggressive).
[2021-01-13 16:22] VITALS: BP 181/95
[2021-01-13 19:20] VITALS: BP 166/82
--- NOTE | 2021-01-14 06:10 | NUR ---
ASSUMED PT CARE AT 1930. PT IS ALERT AND ORIENTED TO SELF. PT RESPONDS APPROPRIATELY TO FAMILY. PT IS INCONTINENT OF B/B. PT CAN BE IRRITABLE AND AGGRESSIVE. PT REFUSED EVENING PO MED AND BG. BED ON LOWEST LOCKED POSITION WITH BED ALARM ON AND CALL LIGHT WITHIN REACH. WILL CONTNUE TO MONITOR.
[2021-01-14 06:48] LABS: HEMATOCRIT 34.8 % (42.0-52.0); HEMOGLOBIN 11.5 gm/dL (14.0-18.0); MCH 29.2 pg (26.0-34.0); MCV 88.6 fL (80.0-100.0); RBC 3.93 mil/uL (4.50-6.00); RDW 15.8 % (10.5-14.5); WBC 6.3 thou/uL (4.0-11.0)
[2021-01-14 07:17] LABS: CALCIUM 8.1 mg/dL (8.5-10.1); CREATININE 1.1 mg/dL (0.7-1.3); MAGNESIUM 1.8 mg/dL (1.8-2.4); POTASSIUM 3.2 mmol/L (3.5-5.1)
[2021-01-14 07:39] VITALS: BP 168/92
[2021-01-14 15:28] VITALS: BP 135/77
--- NOTE | 2021-01-14 18:39 | NUR ---
ASSUMED CARE OF PATIENT AT SHIFT CHANGE. ASSESSMENT CHARTED. MEDICATIONS ADMINISTERED PER MAR; CRUSHED IN APPLESAUCE. PATIENT WAS RECEPTIVE TO TAKING PO MEDICATIONS IN AM BUT DAY PROGRESSED PATIENT BECAME INCREASINGLY COMBATIVE. PATIENT REFUSED DINNER INSULIN AND WAS PHYSICALLY AGGRESSIVE WHEN GETTING DISCONNECTED TO IVF. ARIANNE D/C'D. PHARMACY WAS CALLED ABOUT CHANGING PO KEPPRA TO FORM WITH NO ENTERIC COATING. PATIENT STILL A&OX1-2 AND VERY CONFUSED. FAMILY AT BEDSIDE. AD PAPERWORK COPIED FOR SW TO REVIEW ABOUT CHANGING PATIENT FROM DNR TO DNI. FALL PRECAUTIONS IN PLACE. WILL ENDORSE TO NOC RN
[2021-01-14 19:56] VITALS: BP 158/75
--- NOTE | 2021-01-14 20:11 | NUR ---
PATIENT , Vic RAPP, PROVIDED ADVANCE DIRECTIVE PAPERWORK; NEEDING PROVIDER TO LOOK OVER THIS AND CHANGE CODE STATUS. ALSO STATED "DR. GONZALEZ WAS SUPPOSED TO LEAVE A LETTER STATING MY HUSBANDS CONDITION SO I COULD BE HIS DPOA". FAMILY WAS INFORMED TO REINFORCE THIS TO CURRENT HOSPITALIST WHEN ROUNDING IN AM.
--- NOTE | 2021-01-15 04:56 | NUR ---
Assumed pt care at 1900. A/O1-2,confused and impulsive at times. Family at the bedside at shift change,pt took all meds w/o problems. VSS. Incontinent of B&B,redness on buttocks,moisture barrier applied. SR on telemetry. Fall precautions in place.
[2021-01-15 10:16] VITALS: BP 171/80
--- NOTE | 2021-01-15 13:42 | NUR ---
ASSUMED PT CARE THIS AM. PT IS ALERT & ORIENTED 1,2 AND CONFUSED AT TIMES. PT IS INCONTINENT OF BOWEL AND BLADDER. LAST BM WAS THIS AM. PT IS ON TELE MONITOR ON. PT IS A TOTAL CARE AND ACCUCHECK ACHS. PT IS ON ROOM AIR AND HAS HEEL BOOTS ON. GIVEN SODA PER PT AND PT FAMILY REQUEST. PT TOLERATED MEDICATION AND DIET WELL. NO C/O OF NAUSEA AND VOMITING DURING THE SHIFT. PT DAUGHTER AT THE BEDSIDE. PT ON THE BED, BED ON THE LOWEST POSITION, SIDE RAILS UP, CALL LIGHT WITHIN REACH. WILL CONTINUE TO MONITOR PT. FOLLOW POC.
[2021-01-15 17:10] VITALS: BP 159/87
[2021-01-15 19:23] VITALS: BP 175/98
--- NOTE | 2021-01-16 05:37 | NUR ---
Assumed pt care at 1900. A/OX1,confused and impulsive at times keeps pulling electrodes off as well as his gown,replaced a few times. incontinent of B&B,has diarrhea stool softeners held at HS. Fall precautions in place,frequent checks on pt.
[2021-01-16 07:54] VITALS: BP 171/87
--- NOTE | 2021-01-16 09:59 | NUR ---
Assess due to length of stay. admit for altered mental status, pneumonia, aggressive behaviors. Hx advanced dementia. ST following, requires modified diet of puree and honey thick liquids. Daughter at bedside, states appetite is good and pt enjoys the food. Low nutrition risk
--- NOTE | 2021-01-16 12:23 | NUR ---
ASSUMED PT CARE THIS AM. PT A&OX2, MAKES SOME NEEDS KNOWN. PATIENT HAS BEEN INCONTINENT OF BOWEL AND BLADDER THIS SHIFT. PATIENT DENIED PAIN, NUMBNESS, OR TINGLING. PATIENT IS ON ROOM AIR. FALL PRECAUTIONS ARE IN PLACE, CALL LIGHT WITHIN REACH. FAMILY AT BEDSIDE.
--- NOTE | 2021-01-16 13:44 | NUR ---
FAXED CLINICAL UPDATES TO [facility]. LEFT MESSAGE WITH [facility]/ADMISSIONS REGARDING INSURANCE AUTHORIZATION AND STATUS OF BED AVAILABILITY. WILL FOLLOW UP WITH AUTOMATION ENGINEERING TECHNICIAN. [facility] P [phone]; FAX [phone]; M [phone] ([facility])
--- NOTE | 2021-01-16 15:47 | NUR ---
[facility] DECLINED ADMISSION LAST WEEK. CM AND DC HOME ENERGY CONSULTANT FOLLOWED UP WITH [facility] THIS DAY AND THEY INDICATED THEY HADN'T EVER ACCEPTED PT AND CAN NOT ACCEPT HIM RELATED TO BEHAVIORS. CM CALLED AND NOTIFIED PT'S DTRS ANAHI AND AB AND THEY ASKED THAT DR. GONZALEZ AND DR. RANGEL DOCUMENT THAT PT HAD HAD IMPROVEMENT IN LESS BEHAVIORS SINCE STARTED BACK ON THE [facility] AND THAT THAT DOCUMENTATION BE SENT TO [facility] AND [facility] IN HOPES THAT THEY WOULD RECONSIDER. CM NOTIFIED PHYSICIANS OF REQUEST. CM FOLLOWING FOR HOPEFULL SHORT TERM SKILLED PLACEMENT.
[2021-01-16 16:52] VITALS: BP 178/85
[2021-01-16 20:14] VITALS: BP 145/72
--- NOTE | 2021-01-17 05:33 | NUR ---
Pt A/OX1-2,confused and impulsive trying to get out bed without calling several times stating "I want to go home" VSS. Denies pain on assessment. Incontinent of B&B. Took all HS meds w/o problems. Fall precautions in place,frequent checks on pt.
[2021-01-17 07:28] VITALS: BP 155/75
--- NOTE | 2021-01-17 11:04 | NUR ---
ASSUMED PT CARE THIS AM. PT A&OX1-2, FORGETFUL. PATIENT WITH NO IV. PATIENT REMAINS INCONTINENT, CHANGING NECESSARY. PATIENT HAD A BOWEL MOVEMENT THIS SHIFT. PATIENT ON TELE. MEDICATIONS GIVEN WITHOUT ISSUE. PATIENT ON ROOM AIR. DIET ADVANCED PER SPEECH THERAPY EVAL THIS SHIFT. FALL PRECAUTIONS ARE IN PLACE, CALL LIGHT WITHIN REACH.
--- NOTE | 2021-01-17 11:36 | NUR ---
CM FAXED UPDATED CLINICAL INDICATING NO CURRENT BEHAVIORS TO [facility] AND [facility]. CM CALLED AND SPOKE WITH ILYA AT [facility] AND EXPLAINED THE SITUATION. SHE INDICATED SHE HAD TRIED TO GET DOCUMENTATION FORM [facility] RELATED TO BEHAVIORS PT HAD THERE. CM REACHED OUT TO MILAGRO AT [facility]. CM NOTIFIED PT'S DTR OF [facility] AND SHE INDICATED THAT SHE WAS GOING TO GO OVER TO THE FACILITY. CM FOLLOWING REGARDING DC PLANNING.
[2021-01-17 15:25] VITALS: BP 146/67
[2021-01-17 20:11] VITALS: BP 155/75
--- NOTE | 2021-01-18 06:56 | NUR ---
Pt alert and oriented to self this shift. Confused. Pleasant. Pt cooperative with care and med administration. Incontinent of bladder. Daughter at bedside beginning of shift. Pt slept off and on. Was not impulsive this shift. Call light within reach. No IV access. Fall precaution in place. Call light within reach. Will continue to monitor.
[2021-01-18 08:43] VITALS: BP 161/82
[2021-01-18 08:45] VITALS: BP 132/54
--- NOTE | 2021-01-18 12:03 | NUR ---
Patient A/O x 1 self. Room air. Max assist with transfers and ADLs. Has has 2 Large incont BMs so far this shift. His Daughter Minda is at bedside and asked to speak with Case managment. Still looking for a SNF approval per case managment.
--- NOTE | 2021-01-18 13:56 | NUR ---
CM FAXED REFERRAL TO [facility] PER REQUEST OF FAMILY. CM CALLED ILYA IN ADMISSIONS AT [facility] AND SHE INDICATED THAT SHE HAD SPOKEN WITH PT'S SPOUSE YESTERDAY BUT WAS STILL WAITING ON [facility] RELATED TO BEHAVIORS HE HAD THERE PRIOR TO ADMISSION. CM FOLLOWING REGARDING DC PLANNING.
[2021-01-18 15:09] VITALS: BP 145/69
[2021-01-18 19:54] VITALS: BP 147/83
--- NOTE | 2021-01-19 01:24 | NUR ---
patient aox1 confused and forgetful. patient encourged fluids and snacks.family requesting chest x ray and kub before discharge. patient denied pain or discomfort. no agression noted this shift.fall precaution in place. patient in bed asleep at this time breathing regular and unlaboured.
[2021-01-19 07:30] VITALS: BP 161/78
[2021-01-19 10:35] VITALS: BP 161/78
--- NOTE | 2021-01-19 13:16 | NUR ---
ASSUMED CARE OF PT AT 0700 THIS MORNING. PT IS A/OX1 WITH CONFUSION AND FORGETFULL. PT IS VERY COOPERATIVE AND PLEASANT. LUNGS ARE CLEAR WITH DIMINISHED LOWER LOBES. SKIN INTACT WITH NO TENTING. BRUISING NOTED ON BOTH ARMS AND LOWER EXTREMITIES. IV NOT IN PLACE DUE TO PT PULLING THEM OUT. ASSESSMENTS NOTED IN CHART AND OTHERWISE UNREMARKABLE. CALL LIGHT AND OTHER NEEDS ARE IN PLACE ALONG WITH FALL PRECAUTIONS. MEDS AND TX GIVEN NEEDED AND SCHEDULED. WILL MONITOR AND NOTE ANY CHANGES.
[2021-01-19 15:32] VITALS: BP 146/77
--- NOTE | 2021-01-19 16:29 | NUR ---
CM CALLED AND LEFT WITH ADMISSIONS AT [facility]. CM FOLLOWED UP WITH CEDRIC AT [facility] AND SHE INDICATED THEY DON'T HAVE AND OPEN BEDS. ANAHI HAD MENTIONED [facility] YESTERDAY AND THAT SHE WAS GOING TO MAYBE GO BY AND TOUR. CM TO INQUIRE IF CM CAN FAX REFERRAL THERE. CM ATTEMPTING TO FIND SHORT TERM SKILLED REHAB PLACEMENT FOR PT.
[2021-01-19 20:34] VITALS: BP 159/90
--- NOTE | 2021-01-20 06:01 | NUR ---
ASSUMED CARE OF PT AT SHIFT CHANGE. PT IS AOX1 AND NEEDS MUST BE ASSUMED. FALL PRECAUTION IN PLACE. PT DENIED PAIN, NAUSEA OR SOA. PT TOOK ALL HS MEDS CHUSHED IN PUDDING. ASSESSMENT CHARTED. PT WAS CALM AND COOPERATIVE THIS SHIFT. PT SLEPT PART OF THE SHIFT. VSS AND NO S/S OF ACUTE DISTRESS. WILL CONTINUE TO MONITOR.
[2021-01-20 08:00] VITALS: BP 175/85
--- NOTE | 2021-01-20 12:12 | HC ---
[facility] [place] [address] CONSULTATION Name: RIVERA RAPP Room #: 454-P ADM IN M.R.#: [id number] Admission: 01/08/21 Attend Phys: Michael Zavala MD Discharge: Date of : 38 Report #: [id number] THIS REPORT FOR: cc: Benji Dumont,Benji Leyva,Fabian Elmore MD ~ DATE OF SERVICE: 01/11/2021 HISTORY OF PRESENT ILLNESS: This is an 80-year-old male patient who was evaluated by me for altered mental status. I had seen this patient in the Emergency Room, but no official consult was put in, so I did not do any consult. I talked to the that time and I talked to the again today. This patient has longstanding trouble with memory problem. He went to [facility] for what looks like infection. Then, he was sent to [facility] unit. He had aggressive behavior and confusion that time. In the Emergency Room, it looks like the patient had acute onset of altered mental status. It looks like he had multiple testing done. He had a CT and CT angiogram, which demonstrated vertebral artery problems, but nothing which can be corrected. He has a history of diabetes. He has a history of epilepsy, epilepsy looks like is a presumptive diagnosis. He was falling down and he saw an epileptologist at [facility] and he gave him a trial with anticonvulsants. His symptoms improved with that. Sometime along the line, he developed atrial fibrillation and he has been on anticoagulation. It looks like his anticoagulation is being held because of swallowing problem, but he has been switched to Lovenox. He has a history of osteoarthritis, pituitary adenoma, chronic kidney disease as per record, but his GFR has been pretty good here and in fact has been good since 2013. He is being followed by multiple consultants including ID. REVIEW OF SYSTEMS: There was a relevant 14-point review of systems. PAST MEDICAL HISTORY: Positive for dementia. FAMILY HISTORY: Negative for any hereditary dementia. SOCIAL HISTORY: He is and I talked to his . PHYSICAL EXAMINATION: His examination indicates that he is alert. He does not know what month and what day it is. Apparently that has been his baseline. His cranial nerve examination and neuromuscular examination is difficult to carry out. His cooperation is poor. I reviewed the PT, OT note. He does have some weakness, but I do not know how much is old and how much is new. The says that he is actually better today than he has been. Blood pressure is running about 168/74. [facility] [address] [place] [address] CONSULTATION Name: RIVERA RAPP Room #: 454-P [facility] IN M.R.#: [id number] Admission: 01/08/21 Attend Phys: Michael Zavala MD Discharge: Date of : 38 Report #: [id number] IMAGING STUDIES: He did have CT angiography on admission. IMPRESSION: I am not sure what altered mental status was from. I suspect that his encephalopathy caused by systemic infection. He has numerous other problems like evaluation and management, I will defer to hospitalist or the career development consultant he or she wants to involve. I will confine myself strictly to altered mental status for which I was consulted. I talked to the about the patient's option. We talked about doing an MRI, she does not think that he can lay still because he has a lot of pain and wanted to skip the MRI and that is reason because he is already anticoagulated and already had a CT angiogram done. He needs more workup on other fronts, infectious and this spine workup is necessary and I will defer that to the graduating machine operator. Infectious Disease is already involved. I have spent more than 50 minutes of time taking care of this patient today and yesterday and when he came in and majority was spent counseling and coordinating. <ELECTRONICALLY SIGNED> By: Fabian Stanton MD 01/20/21 1212 [id number] Fabian Stanton MD /nt
--- NOTE | 2021-01-20 18:30 | NUR ---
PT ASSESSED AT START OF SHIFT. PT CONFUSED AND VERY DROWSY THIS AM BUT GRADUALLY BECAME MORE ALERT W/ BRIGHTER AFFECT DAY WENT ON. CALM AND COOPERATIVE W/ CARES. TAKING NECTAR LIQUIDS AND MECH SOFT DIET WELL. AMBULATED SOME W/ THERAPY.
[2021-01-20 20:20] VITALS: BP 153/78
--- NOTE | 2021-01-21 04:35 | NUR ---
ASSUMED CARE OF PT AT SHIFT CHANGE. PT IS ALERT BUT ONLY ORIENTED TO PERSON. FALL PRECAUTION IN PLACE. PT DENIED PAIN, NAUSEA OR SOA. ASSESSMENT CHARTED. PT WAS INCT THIS SHIFT. DTR (CHERI- [id number]) WOULD LIKE AN UPDATE FROM HOSPITALIST. PT WAS ABLE TO SLEEP PART OF THE SHIFT. VSS AND NO S/S OF ACUTE DISTRESS. WILL CONTINUE TO MONITOR.
[2021-01-21 07:51] VITALS: BP 169/85
[2021-01-21 15:55] VITALS: BP 154/88
--- NOTE | 2021-01-21 16:13 | NUR ---
PT IS CONFUSED BUT ALERT. PT IS ON BED ALARM AND FAMILY BE AT BEDSIDE WITH PATIENT AT MOST TIME AND FEED PT WITH MEALS. PT IS ON MECHANICAL SOFT DIET AND NECTAR LIQUID. PT'S REQUEST TO CHANGE PT BACK TO REGULAR FOOD NOT MECHANICAL SOFT DUE TO LOW APPETITE BUT NURSE EDUCATED THE IMPORTANCE TO FOLLOW SPEECH THERAPY'S DIET DIRECTION FOR PT. NO IV DUE TO FREQUENTLY PULL OUT AND NO USE OF IV FOR CURRENT CARE PLAN. WILL KEEP MONITOR PT'S SAFETY.
--- NOTE | 2021-01-22 04:46 | NUR ---
ASSUMED CARE OF PT AT SHIFT CHANGE. PT IS AOX1 AND CONFUSED. FALL PRECAUTION IN PLACE. PT WAS INCT THIS SHIFT. ABX TREATMENT CONTINUED. PT TOOK HS PILLS CRUSHED IN PUDDING. PT CAN BE IMPULSIVE. PT SLEPT PART OF THE SHIFT. WILL CONTINUE TO MONITOR.
[2021-01-22 08:00] VITALS: BP 145/77
[2021-01-22 16:00] VITALS: BP 145/66
--- NOTE | 2021-01-22 16:23 | NUR ---
Assumed pt care at 7am.Pt in bed pleasantly confused and crossing legs at alltimes.Assessment completed.vss.Assisted with tray setup at all meals.Fair appetite noted.Pt has bm x1 this shift.Pericare given with complete bed change.Dtr here to visit,updates given.No verbal c/o or any discomfort noted. Will continue nto monitor.
[2021-01-22 19:40] VITALS: BP 152/78
--- NOTE | 2021-01-23 07:15 | NUR ---
ASSUMED CARE OF PT AT SHIFT CHANGE. PT IS AOX1 AND NEEDS MUST BE ASSUMED. FALL PRECAUTION IN PLACE. PT CAN BE IMPULSIVE. PT HAD DIARRHEA THIS SHIFT. FAMILY WOULD LIKE MIRALAX TO BE HELD. PT TOOK ALL HS MEDS CRUSHED WITH PUDDING. WAS INCT THIS SHIFT. PT SLEPT PART OF THE SHIFT. VSS AND NO S/S OF ACUTE DISTRES. WILL CONTINUE TO MONITOR.
[2021-01-23 07:34] VITALS: BP 145/81
--- NOTE | 2021-01-23 09:20 | NUR ---
Nutrition follow up: Noted with diet advanced from puree with honey thick liquds and is now on mechanically altered-ground with nectart thick liquids per ST. Foods served with extra gravies, no straws. Intakes fair to good with avg intakes >75% across all meals. No current weight. BM 8/. Remains low nutrition risk.
--- NOTE | 2021-01-23 11:48 | NUR ---
CM UPDATED PT'S DTR ANAHI ON UNIT THIS AM. CM CALLED MALLIKA SULLIVAN IN ADMISSION AT [facility] THIS AM AND LEFT VM. CM FAXED UPDATED CLINICAL TO THEM FOR REVIEW. CM AWAITING RESPONSE FROM [place]. PT'S DTR INDICATED SHE WAS GOING TO GO TO TO [facility] TODAY TO FOLLOW UP WITH ADMISSION THERE WELL. CM FOLLOWING TO ATTEMPT TO FIND PLACEMENT FOR PT.
[2021-01-23 18:43] VITALS: BP 141/85
--- NOTE | 2021-01-23 19:55 | NUR ---
Assumed pt care at 7am.Pt in bed most ot the time resting.Alert and oriented to self only.Assessment completed.vss.Assisted with feeding at all meals. Family here most of the times assisting pt with care.Pt c/o left shoulder pain and pain patch applied.Pt has bm x2 today.Pericare given with complete bed change.Report off to noc rn.Will continue to monitor.
[2021-01-23 21:00] VITALS: BP 151/85
[2021-01-24 08:04] VITALS: BP 129/77
--- NOTE | 2021-01-24 08:28 | NUR ---
Assumed pt care at 1900. A/OX1,coperative with cares. VSS. Denied pain on assessment. Incontinent of bladder a few times pericare done as needed. Took meds crushed,nectar thick w/o problems. Fall precautions in place,continues to monitor pt.
--- NOTE | 2021-01-24 16:08 | NUR ---
FAMILY DOENS'T WANT REFERRAL TO [place]. THEY WERE OK WITH REFERRAL BEING SENT TO [facility]. CM TO FAX THERE AND FOLLOW UP WITH JADE. CM TO FOLLOW INDICATED WITH DC PLANNING.
[2021-01-24 16:30] VITALS: BP 128/80
--- NOTE | 2021-01-24 16:53 | NUR ---
Assumed pt care at 7am.Pt in bed resting .Alert and oriented to self with some forgetfulness and confusion.Assessment completed.vss.Manager Sap assisted pt feeding at allmeals.Fair appetite.Pt has loose stool x2 today.Pericare and completed bed change done.Family here to visit. Discussed with cm dc planning and possible dc to snf whenever bed available.No verbal c/o. Will continue to monitor.
[2021-01-24 20:11] VITALS: BP 114/54
--- NOTE | 2021-01-25 05:18 | NUR ---
Assumed pt care at 1900. A/0X1,confused/impulsive at times but coperative with cares. C/o left shoulder pain,medicated with Tylenol per EMAR with relief reported. Incontinent of bladder this shift. Fall precautions in place,frequent checks on pt.Resting quietlya t this time,will continue to monitor pt.
[2021-01-25 07:07] VITALS: BP 150/87
--- NOTE | 2021-01-25 09:13 | NUR ---
DTR ANAHI INDICATED THAT ELIAS IN ADMISSIONS AT [facility] FAXED CLINICAL DOCUMENTATION TO ILYA AT [facility] YESTERDAY. CM FAXED REFERRAL TO [facility]. CM FOLLOWING FOR HOPEFUL DC TO EITHER [facility] OR [facility].
[2021-01-25 17:40] VITALS: BP 126/74
--- NOTE | 2021-01-25 20:12 | NUR ---
ASSUMED CARE OF PT AT 0700. PT PLESANT AT THAT TIME. A&O TO SELF, PLACE ONLY. PT GOT AGGRESIVE WITH P.T. TODAY DID NOT WANT TO COOPERATE. PT C/O CHEST PAIN IN LATE AFTERNOON, EKG AND LABS ORDERED. LABS NOT DRAWN OF THIS TIME. EKG WAS WNL. WILL CONTNIUE TO MONITOR.
[2021-01-25 20:20] VITALS: BP 145/68
[2021-01-26 02:25] LABS: ABSOLUTE NEUTROPHILS 3.4 thou/uL (1.4-8.2); BASOPHILS 1.6 % (0.0-2.0); EOSINOPHILS 7.4 % (0.0-3.0); HEMATOCRIT 36.5 % (42.0-52.0); HEMOGLOBIN 12.1 gm/dL (14.0-18.0); LYMPHOCYTES 21.1 % (24.0-44.0); MCHC 33.3 g/dL (28.0-37.0); MCV 87.2 fL (80.0-100.0); PLATELET COUNT 298 thou/uL (150-400); POLYS 56.9 % (36.0-66.0); RBC 4.19 mil/uL (4.50-6.00); RDW 15.4 % (10.5-14.5)
[2021-01-26 03:48] LABS: ALBUMIN 2.9 g/dL (3.4-5.0); ANION GAP 11 mmol/L (7-16); BUN 11 mg/dL (7-18); CALCIUM 8.2 mg/dL (8.5-10.1); CHLORIDE 106 mmol/L (98-107); CO2 27 mmol/L (21-32); CREATININE 1.1 mg/dL (0.7-1.3); GLUCOSE 87 mg/dL (74-106); MAGNESIUM 2.1 mg/dL (1.8-2.4); POTASSIUM 3.5 mmol/L (3.5-5.1); SGOT 16 U/L (15-37); SGPT 28 U/L (30-65); SODIUM 144 mmol/L (136-145); TOTAL BILIRUBIN 0.2 mg/dL (0.2-1.0); TOTAL PROTEIN 6.4 g/dL (6.4-8.2); TROPONIN-I <0.06 ng/mL (<0.06)
--- NOTE | 2021-01-26 04:30 | NUR ---
Assumed pt care at 1900. A/OX1,confused resists cares at times but redirectable eventually. VSS.C/o left shoulder pain,medicated with Tylenol and effective. Incontinent of B&B,bedbath completed this shift. No further c/o chest pain/discomfort voiced, SR on telemetry. Fall precautions in place,will continue to monitor pt.
[2021-01-26 11:01] VITALS: BP 130/65
--- NOTE | 2021-01-26 11:17 | NUR ---
CM FOLLOWED UP WITH JOSI AT [facility] AND SHE INDICATED THAT THEY AREN'T ABLE TO ACCEPT PT AND CAN'T MEET HIS NEEDS. CM CALLED GENOVEVA AT [facility] AND LEFT VM. CM FOLLOWING REGARDNING DC PLANNING.
--- NOTE | 2021-01-26 11:40 | NUR ---
Assumed pt care this amn, vs stable. alert to self and forgetful but pleasant. Incontinent of both bowel and baldder, pain is managed with medications. Pt is a total care, but is able to move legs around the bed.
[2021-01-26 18:02] VITALS: BP 128/61
[2021-01-26 19:27] VITALS: BP 125/70
--- NOTE | 2021-01-27 01:38 | NUR ---
ASSUMED PT CARE AT
--- NOTE | 2021-01-27 01:40 | NUR ---
ASSUMED PT CARE AT 1920. PT IS ALERT AND ORIENTED TO SELF. PT WAS CALM AND PLEASANT. PT WAS HAVING A CONVERSATION WITH DAUGHTER. PT WAS COOPERATIVE WITH CARE. VS WERE WITHIN NORMAL RANGE. ASSESSEMENT CHARTED AND MEDS WERE GIVEN PER EMAR ORDERS. NO VISIBLE SIGN OF DISTRESS WAS NOTED. BED ON LOWEST LOCKED POSITION WITH BED ALARM ON AND CALL LIGHT WITHIN REACH. WILL CONINUE TO MONITOR.
[2021-01-27 09:10] VITALS: BP 176/84
--- NOTE | 2021-01-27 09:19 | EKG ---
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 01/27/21918 1816 15 Jr Peck MD, [facility] /EPI
--- NOTE | 2021-01-27 13:27 | NUR ---
PT IS A&O*4 WITH CONFUSED AND FORGETFULL. PT IS ON BED ALARM AND FAMILY MEMBER PRESENT IN THE ROOM IN MOST TIME DURING DAY TIME. LINDOCAINE PATCH APPLIED ON LEFT SHOULDER PAIN.PT COULD TURN BY SELF AND REMIND TO TURN Q2. NO IV PER PT'S REQUEST AND DOCTOR ACKNOWLEDGE. AQSH. WILL KEEP MONITOR PT'S SAFET UNTIL SHIFT CHANGE.
[2021-01-27 16:48] VITALS: BP 108/54
[2021-01-27 20:23] VITALS: BP 138/78
--- NOTE | 2021-01-28 04:42 | NUR ---
patient aox1 confused and forgetful. patient calm and cooperative with meds and care. patient incontinent this shift, pericare and barrier cream applied as needed. fall precaution in place. patient in bed asleep at this time breathing regular and unlaboured.
[2021-01-28 09:00] VITALS: BP 142/74
--- NOTE | 2021-01-28 15:00 | NUR ---
ASSUMED CARE OF PT AT 0700 THIS MORNING. PT IS A/O TO SELF, PLEASANT AND COOOPERATIVE. SKIN INTACT WITH NO TENTING. INCOT. BOWEL AND BLADDER. ASSESSMENT CHARTED AND OTHERWISE UNREMARKABLE. CALL LIGHT AND OTHER NEEDS ARE WITHIN REACH. FALL PRECAUTIONS ARE IN PLACE. MEDS AND TX GIVEN NEEDED AND SCHEDULED. WILL MONITOR AND NOTE ANY CHANGES.
[2021-01-28 16:08] VITALS: BP 130/64
[2021-01-28 22:27] VITALS: BP 150/90
--- NOTE | 2021-01-29 07:22 | NUR ---
Assumed pt care at 1900.A/OX1-2,impulsive as well as yelling out loud saying he's seeing unseen people in his room several times;redirected a few times and reoriented he's still in the hospital.Pt eventually went back to sleep. Incontinent of B&B this shift,pericare done as well as needed. Fall precautions in place,frequent checks on pt.
[2021-01-29 17:02] VITALS: BP 145/85
[2021-01-29 19:28] VITALS: BP 148/73
--- NOTE | 2021-01-29 19:36 | NUR ---
I agree with Amalia LPNs Assessment.
--- NOTE | 2021-01-29 20:21 | NUR ---
VSS; PATIENT STILL ALERT TO SELF. PATIENT STILL CONFUSED THIS SHIFT BUT NO MORE EXHIBITING AGGRESIVE BEHAVIORS. NO INSULIUN NEEDED THIS SHIFT; FED THIS SHIFT BY FAMILY W NO ISSUES. INCONT OF BOWEL AND BLADDER BUT DOES ASK FOR THE URINAL OCCASIONALLY. NO FURTHER ISSUES NOTED; STILL WAITING ON PLACEMENT. ENDORSED TO ONCOMING NURSE
--- NOTE | 2021-01-30 04:54 | NUR ---
Assumed pt care at 1900. A/OX1,confused but coperative with cares this shift. VSS. No c/o pain on assessment. Incontinent of B&B this shift,pericare done as tolorated, redness noted on periarea,moisture barrier applied. Took meds crushed in pudding w/o any problems voiced. Fall precautions in place,will continue to monitor pt.
[2021-01-30 05:34] VITALS: BP 146/60
[2021-01-30 08:09] VITALS: BP 156/76
--- NOTE | 2021-01-30 08:30 | NUR ---
Followup: diet has been upgraded to regular but still requires nectar liquids. Feed assist and has been eating 50-100%. Wt stable 193 lb. Low nutrition risk
--- NOTE | 2021-01-30 15:26 | NUR ---
Assumed pt care this am vs stable. Spouse at the bed side. Diet and medications are tolerated well. POC followed with no signs or verbalizations of distress noted. AWaiting placement
--- NOTE | 2021-01-30 16:03 | NUR ---
ERIS SPOKE WITH PT'S SPOUSE NICKI. ERIS SENDING REFERRAL TO [facility] AND [facility] FOR REVIEW FOR POSSIBLE ADMISSION.
[2021-01-30 20:18] VITALS: BP 146/71
--- NOTE | 2021-01-31 05:27 | NUR ---
Assumed pt care at 1900. A/OX1,confused but able to voice needs at times. VSS. Denies pain on assessment. Cooperative with cares. Incontinent of B&B.Fall precautions in place,frequent checks on pt.
[2021-01-31 07:54] VITALS: BP 153/83
--- NOTE | 2021-01-31 13:36 | NUR ---
ELENA INDICATED THEY DECLINE ADMISSION. CM FAXED REFERRAL TO [place] AND TO [facility]. CM TO FAX REFERRAL TO [facility] ONCE [facility]ORY CLEARS FROM TWO PREVIOUS FAXES.
[2021-01-31 17:00] VITALS: BP 141/71
--- NOTE | 2021-01-31 18:05 | NUR ---
Assumed pt care this am, VS stable. Medications crushed and given in pudding, diet and medications are tolerated well. Daughter at the bed side. blood sugar monitor done, no insulin needed. Pt is alert but no oriented. FAll precautions in place. POC followed with no signs or verbalizations of distress noted. Awaiting placement.
[2021-01-31 19:34] VITALS: BP 110/60
[2021-02-01 05:08] VITALS: BP 135/82
--- NOTE | 2021-02-01 05:47 | NUR ---
Today this pt has had stable vs and no stated pain. He has been asleep for most of the night and not agressive at all he has been calm and cooperative. He has had one incontinent occurence thus far throughout the night and has otherwise been awaiting for the next plan.
[2021-02-01 15:50] VITALS: BP 154/82
[2021-02-01 16:22] VITALS: BP 154/82
--- NOTE | 2021-02-01 16:52 | NUR ---
ERIS SPOKE WITH JUSTO IN ADMISSIONS AT [facility] YESTERDAY EVENING. ERIS INDICATED NO RECENT AGRESSIVE BAHAVIORS SINCE 01/14. CM FAXED NURSES NOTES OVER TO JUSTO IN ADMISSIONS AND TO CHUCK AT [facility]. CM CALLED AND SPOKE WITH CHUCK SCHULTE INDICATED VACINATED WIHT PFIZER IN JUL SPOUSE CAN BRING CARD IN. CM FAXED DPOA PAPERWORK. SHE IS TO CHECK PT'S INSIRANCE WITH [employer] ANS TOUCH BASE WITH ERIS IN THE AM. CM SENT SAME INFO TO [place] AND CALLED JUSTO AND LEFT ERIS. CM FOLLOWING REGARDING HOPEFUL DC TO [facility] OF [facility].
--- NOTE | 2021-02-01 17:04 | NUR ---
Pt is AxOX1 remains incontinent of B/B. On bedrest unable to stand or ambulate. He has had a decrease in diet. Lungs remain diminished and bowels sounds are present. Family remains at bedside. Bed in low position. Fall precautions in place. Call light within reach.
[2021-02-01 20:00] VITALS: BP 121/55
--- NOTE | 2021-02-02 04:29 | NUR ---
Assumed pt care at 1900. A/OX1,confused but coperative with cares. VSS.Denies pain on assessment. Incontinent of B&B. Red spot/scratch noted on left thigh doesn't appear to be a bedsore as dtr says,moisture barrier applied. Attempts to reposition pt unsuccessful as pt repositions himself back on his back as well as slid over the side rails trying to get up;moisture barrier applied. Fall precautions in place,will continue to monitor pt.
[2021-02-02 08:20] VITALS: BP 140/60
[2021-02-02 10:23] VITALS: BP 121/55
--- NOTE | 2021-02-02 11:57 | NUR ---
CM FOLLOWED UP WITH CHUCK IN ADMISSION AT [facility] THIS AM AND SHE INDICATED THAT THEY ARE ACCEPTING OF PT AND HAD SUBMITTED FOR [employer] AUTH. SHE INDICATED THEY HADN'T GOTTEN IT YET BUT THAT THEY ARE ACCEPTING OF PT EITHER WAY AND THAT THEY HAD INFORMED PT'S SPOUSE NICKI WHO TOURED THAT THEY WOULD BE PAYING PRIVATELY IF INSURANCE DENIES AND GET GET PART B THERAPIES AND SHE HAS THEIR RATES. CM FAXED [facility] CARD THIS AM. CHUCK INDICATED THEY NEEDED HOSPITAL TO [facility]. CM REQUESTED CHART COPY AND NOTIFIED PHYSICIAN OF ACCPETING FACILITY FOR ORDERS TO BE ENTERED. CM NOTIFIED PT'S SPOUSE/DPOA AT BEDSIDE AND SHE INDICATED SHE TOURED AND THAT SHE CAN'T HAVE TO GO TO [facility] THAT IT'S OLD, DARK, AND DREARY... CM INDICATED THAT PT WAS DISCHARGING TO [facility] TODAY HE NO LONGER NEEDS ACUTE HOSPITALIZATION AND WE HAD JUST BEEN TRYING TO FIND A FACILITY TO ACCEPT HIM. WE HAVE AN ACCEPTIGN FACILITY NO AND PT WILL NEED TO DC TO [facility] SKILLED THIS DAY. CM INDICATED THEY COULD CONTINUE TO SEEK ALTERNATIVE PLACEMENT FROM THERE IF DESIRED. PT'S DTR ANAHI CALLED AND INDICATED THEY WOULD PREFER PT TO DC TO [facility] OVER [facility]. CM FAXED REFERRAL BUT WILL CALL AND NOTIFY DTR THAT PT IS DC TODAY REGARDLESS. ONCE ORDERS COMPLETED CM TO [facility].
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
[2021-02-02] MEDS ORDERED: LIDOPATCH1 EACH TRANSDERM (13:20)
[2021-02-02] MEDS ORDERED: NORVASC10 MG PO (13:20)
[2021-02-02] MEDS ORDERED: NOVOLOG100 UNIT/1 SUBQ (13:20)
[2021-02-02] MEDS ORDERED: IPRAT-ALBUT 0.5-3 ML INH (13:20)
[2021-02-02] MEDS ORDERED: MIRALAX17 GM PO (13:20)
[2021-02-02] MEDS ORDERED: STIMULANT LAXA1 EACH PO (13:20)
[2021-02-02] MEDS ORDERED: TYLENOL325 MG PO (13:20)
[2021-02-02 14:15] VITALS: BP 101/50
--- NOTE | 2021-02-02 16:52 | NUR ---
Spoke at great length with daughter Minda as they wished to remain in the hospital still to seek another placement for SNF care after 20 referrals have been exhausted. Allowed daughter to vent frustrations with SNF's in the past and empowered daughter on her rights in a SNF facility to be informed of all medication changes and labs ordered. After considerable time in conversation daughter and patient's spoused did acquiesce and agreed to transfer to [facility]. Transport in room at 1645.
== END 2021-02-02 17:12 | DRG 871 ==
LOC: ER 09:15 → 4W 19:11 → EROBS 19:11 → 4W 22:10
PROVIDERS: Emergency Medicine; Nurse Practitioner; Nurse Practitioner Family; ADMIT Internal Medicine; ATTEND Internal Medicine
PROC: 5A12012 Performance of Cardiac Output, Single, Manual (ICD-10-PCS; principal; 2021-01-08)
PROC: B328ZZZ Computerized Tomography (CT Scan) of Bilateral Internal Carotid Arteries (ICD-10-PCS; principal; 2021-01-08)
PROC: B32RZZZ Computerized Tomography (CT Scan) of Intracranial Arteries (ICD-10-PCS; principal; 2021-01-08)
DX: A41.1 Sepsis due to other specified staphylococcus (principal); G92 Toxic encephalopathy; J69.0 Pneumonitis due to inhalation of food and vomit; F03.91 Unspecified dementia, unspecified severity, with behavioral disturbance; Z20.822 Contact with and (suspected) exposure to COVID-19; K21.9 Gastro-esophageal reflux disease without esophagitis; G40.909 Epilepsy, unspecified, not intractable, without status epilepticus; I48.91 Unspecified atrial fibrillation; G47.33 Obstructive sleep apnea (adult) (pediatric); I25.10 Atherosclerotic heart disease of native coronary artery without angina pectoris; M19.90 Unspecified osteoarthritis, unspecified site; I50.9 Heart failure, unspecified; N18.9 Chronic kidney disease, unspecified; R41.0 Disorientation, unspecified; R53.81 Other malaise; E11.22 Type 2 diabetes mellitus with diabetic chronic kidney disease; K59.00 Constipation, unspecified; D64.9 Anemia, unspecified; Z90.49 Acquired absence of other specified parts of digestive tract; Z98.52 Vasectomy status; Z95.5 Presence of coronary angioplasty implant and graft; Z95.1 Presence of aortocoronary bypass graft; Z79.899 Other long term (current) drug therapy
CPT/HCPCS: 10040; 10045